=== PATIENT | male | born 1965 | race Caucasian/White ===

== ENCOUNTER 2025-05-25 11:28 | Outpatient (AMB) | payer OTHER, SELFPAY ==
--- OUTSIDE RECORDS SUMMARY | 2025-05-25 12:28 | XMS_ITS | Clinical Summary ---
Author Organization [facility] Address [address] [place] [address] Care Team Providers Care Director Of Investigations Name Role Phone Ximena Coker MD Primary Care Provider [phone] Social History Tobacco Use Types Packs/Day Years Used Date Smoking Tobacco: Never Assessed Sex and Gender Information Value Date Recorded Sex Assigned at Not on file Legal Sex Male 2:55 AM EST Gender Identity Not on file Sexual Orientation Not on file Plan of Treatment Health Maintenance Due Date Last Done Comments DTaP,Tdap,and Td Vaccines (1 - Tdap) 1982 Pneumococcal Vaccine: 50+ Ye ars (1 of 1 - PCV) 2013 Zoster Vaccines (1 of 2) 2013 Cholesterol Screening (Lipid Panel) 04/20/2024 Colorectal Cancer Screening: Colonoscopy 04/20/2024 HIV Screening 04/20/2024 Hepatitis C Screening 04/20/2024 Social Influencers of Health Screening 04/20/2024 COVID-19 Vaccine (1 - 2023-2 5 season) 2024 Depression Screening 09/29/2024 Influenza Vaccine (#1) 2025 RSV Immunization Adult Patie nts (1 - 1-dose 75+ series) 2038 HIB Vaccines Aged Out No longer eligi ble based on patient's age to complete this topic HPV Vaccines Aged Out No longer eligi ble based on patient's age to complete this topic Hepatitis A Vaccines Aged Out No long er eligible based on patient's age to complete this topic Hepatitis B Vaccines Aged Out No long er eligible based on patient's age to complete this topic IPV Vaccines Aged Out No longer eligi ble based on patient's age to complete this topic MMR Vaccines Aged Out No longer eligi ble based on patient's age to complete this topic Meningococcal ACWY Vaccine Aged Out N o longer eligible based on patient's age to complete this topic Meningococcal B Vaccine Aged Out No l onger eligible based on patient's age to complete this topic RSV Immunization Patients Un luis daniel 20 months Aged Out No longer eligible b ased on patient's age to complete this topic Varicella Vaccines Aged Out No longer eligible based on patient's age to complete this topic Care Teams Director Of Investigations Relationship Specialty Start Date End Date Ximena Coker MD PCP - General 12/26/23
--- OUTSIDE RECORDS SUMMARY | 2025-05-25 12:29 | XMS_ITS | Patient Health Record ---
Author Organization [facility] [address] Address [address] [place] [address] Care Team Providers Care Snag Grinder Name Role Phone VON HAYES Unavailable [phone] BEATRIZ COKER Unavailable [phone] ALYSSAKUNAL Unavailable [phone] Allergies No Known Allergies Results Component Value Reference Range Notes Myah Short LP Default Reviewed date:12/22/2024 08:39:44 AM Interpretation: Performing Lab:[facility], [address] [facility], Phone - [phone], Director - Esperanza Notes/Report: Myah Short LP Default A hand-written panel/profile was received from your office. In accordance with the [email or web address] Ambiguous Test Code Policy dated March 2003, we have completed your order by using the closest currently or formerly recognized AMA panel. We have assigned Lipid Panel, Test Code #[id number] to this request. If this is not the testing you wished to receive on this specimen, please contact the [email or web address] Client Inquiry/Technical Services Department to clarify the test order. We appreciate your business. PSA Total+% Free-[id number] Reviewed date:12/28/2024 09:04:23 AM Interpretation: Performing Lab:[facility], [address] [facility], [place], Phone - [phone], Director - MDBessydry Notes/Report: Prostate Specific Ag 0.8 0.0-4.0 ng/mL Alison ECLIA methodology. . According to the [place] [employer], Serum PSA should decrease and remain at undetectable levels after radical prostatectomy. The AUA defines biochemical recurrence as an initial PSA value 0.2 ng/mL or greater followed by a subsequent confirmatory PSA value 0.2 ng/mL or greater. Values obtained with different assay methods or kits cannot be used interchangeably. Results cannot be interpreted as absolute evidence of the presence or absence of malignant disease. PSA, Free 0.24 N/A ng/mL Alison ECLIA met hodology. % Free PSA 30.0 The table below lists the probability of prostate cancer for men with non-suspicious GAYLE results and total PSA between 4 and 10 ng/mL, by patient age (Vince et al, ELIU 1998, 279:1542). % Free PSA 50-64 yr 65-75 yr 0.00-10.00% 56% 55% 10.01-15.00% 24% 35% 15.01-20.00% 17% 23% 20.01-25.00% 10% 20% >25.00% 5% 9% Please note: Vince et al did not make specific recommendations regarding the use of percent free PSA for any other population of men. TSH Rfx on Abnormal to Free [id number] Reviewed date:12/22/2024 08:39:44 AM Interpretation: Performing Lab:[facility], [address] [facility], [place], Phone - [phone], Director - Esperanza Notes/Report: TSH 3.230 0.450-4.500 uIU/mL Myah Short CMP14 Default A hand-written panel/profile was received from your office. In accordance with the [email or web address] Ambiguous Test Code Policy dated March 2003, we have completed your order by using the closest currently or formerly recognized AMA panel. We have assigned Comprehensive Metabolic Panel (14), Test Code #[id number] to this request. If this is not the testing you wished to receive on this specimen, please contact the [email or web address] Client Inquiry/Technical Services Department to clarify the test order. We appreciate your business. Comp. Metabolic Panel (14)-3 Reviewed date:12/22/2024 08:42:55 AM Interpretation: Performing Lab:[facility], [address] [facility], [place], Phone - [phone], Director - Ericy Notes/Report: Glucose 102 70-99 mg/dL BUN 15 8-27 mg/dL Creatinine 0.97 0.76-1.27 mg/dL eGFR 89 >59 mL/min/1.73 BUN/Creatinine Ratio 15 10-24 Sodium 138 134-144 mmol/L Potassium 5.0 3.5-5.2 mmol/L Chloride 100 96-106 mmol/L Carbon Dioxide, Total 25 20-29 mmol/L Calcium 9.5 8.6-10.2 mg/dL Protein, Total 7.4 6.0-8.5 g/dL Albumin 4.0 3.9-4.9 g/dL Globulin, Total 3.4 1.5-4.5 g/dL Bilirubin, Total 0.9 0.0-1.2 mg/dL Alkaline Phosphatase 80 44-121 IU/L AST (SGOT) 17 0-40 IU/L ALT (SGPT) 5 0-44 IU/L Lipid Panel-[id number] Reviewed date:12/22/2024 08:39:44 AM Interpretation: Performing Lab:[facility], [address] [place] [address], Phone - [phone], Director - DCAngella Notes/Report: Cholesterol, Total 180 100-199 mg/dL Triglycerides 67 0-149 mg/dL HDL Cholesterol 83 >39 mg/dL VLDL Cholesterol Williams 13 5-40 mg/dL LDL Chol Calc (NIH) 84 0-99 mg/dL Vitamin D, 64-Ejgmoxb-[id number] Reviewed date:12/28/2024 09:04:23 AM Interpretation: Performing Lab:[facility], [address] [place] [address], Phone - [phone], Director - Esperanza Notes/Report: Vitamin D, 25-Hydroxy 47.2 30.0-100.0 ng/mL Vitamin D deficiency has been defined by the [place] of [employer] and an Endocrine Society practice guideline as a level of serum 25-OH vitamin D less than 20 ng/mL (1,2). The Endocrine Society went on to further define vitamin D insufficiency as a level between 21 and 29 ng/mL (2). 1. IOM ([place] of Medicine). 2010. Dietary reference intakes for calcium and D. [place]: The National Academies Press. 2. No MF, Yajaira [place], Robert PATEL, et al. Evaluation, treatment, and prevention of vitamin D deficiency: an Endocrine Society clinical practice guideline. JCEM. 2010; 96(7):1911-30. CBC With Differential/Platel et-[id number] Reviewed date:12/22/2024 08:39:44 AM Interpretation: Performing Lab:[facility], [address] [place] [address], Phone - [phone], Director - DCAngella Notes/Report: WBC 6.2 3.4-10.8 x10E3/uL RBC 4.70 4.14-5.80 x10E6/uL Hemoglobin 14.0 13.0-17.7 g/dL Hematocrit 41.2 37.5-51.0 % MCV 88 79-97 fL MCH 29.8 26.6-33.0 pg MCHC 34.0 31.5-35.7 g/dL RDW 12.8 11.6-15.4 % Platelets 259 150-450 x10E3/uL Neutrophils 55 Not Estab. % Lymphs 28 Not Estab. % Monocytes 10 Not Estab. % Eos 6 Not Estab. % Basos 1 Not Estab. % Neutrophils (Absolute) 3.4 1.4-7.0 x10E3/uL Lymphs (Absolute) 1.7 0.7-3.1 x10E3/uL Monocytes(Absolute) 0.6 0.1-0.9 x10E3/uL Eos (Absolute) 0.4 0.0-0.4 x10E3/uL Baso (Absolute) 0.1 0.0-0.2 x10E3/uL Immature Granulocytes 0 Not Estab. % Immature Grans (Abs) 0.0 0.0-0.1 x10E3/uL Urinalysis, Complete-[id number] Reviewed date:12/22/2024 08:39:44 AM Interpretation: [facility]forming [facility], [address] [place] [address], Phone - [phone], Director - Esperanza Notes/Report: Specific [place] 1.018 1.005-1.030 pH 5.5 5.0-7.5 Urine-Color Yellow Yellow Appearance Clear Clear WBC Esterase Negative Negative Protein Negative Negative/Trace Glucose Negative Negative Ketones Negative Negative Occult Blood Negative Negative Bilirubin Negative Negative Urobilinogen,Semi-Qn 0.2 0.2-1.0 mg/dL Nitrite, Urine Negative Negative Microscopic Examination Micr oscopic follows if indicated. Microscopic Examination See below: Micr oscopic was indicated and was performed. WBC None seen 0 - 5 /hpf RBC 0-2 0 - 2 /hpf Epithelial Cells (non renal) None seen 0 - 10 /hpf Casts None seen None seen /lpf Bacteria None seen None seen/Few Vitamin [id number] Reviewed date:12/28/2024 09:04:23 AM Interpretation: Performing Lab:[address], Phone - [phone], Director - DCAngella Notes/Report: Vitamin B12 686 458-9319 pg/mL Comp. Metabolic Panel (14)-3 Reviewed date:11/16/2024 11:40:18 AM Interpretation: Performing Lab:[address], Phone - [phone], [facility] - [facility] Notes/Report: Glucose 118 70-99 mg/dL BUN 17 8-27 mg/dL Creatinine 0.97 0.76-1.27 mg/dL eGFR 89 >59 mL/min/1.73 BUN/Creatinine Ratio 18 10-24 Sodium 140 134-144 mmol/L Potassium 5.0 3.5-5.2 mmol/L Chloride 102 96-106 mmol/L Carbon Dioxide, Total 23 20-29 mmol/L Calcium 9.5 8.6-10.2 mg/dL Protein, Total 7.3 6.0-8.5 g/dL Albumin 4.4 3.9-4.9 g/dL Globulin, Total 2.9 1.5-4.5 g/dL Bilirubin, Total 0.5 0.0-1.2 mg/dL Alkaline Phosphatase 81 44-121 IU/L AST (SGOT) 16 0-40 IU/L ALT (SGPT) 5 0-44 IU/L Triiodothyronine (T3), Free- [id number] Reviewed date:11/05/2024 08:16:15 AM Interpretation: Performing Lab:[facility], Phone - [phone], Director - Ericy Notes/Report: Triiodothyronine (T3), Free 2.9 2.0-4.4 pg/mL CBC With Differential/Platel et-[id number] Reviewed date:11/05/2024 08:16:15 AM Interpretation: Performing Lab:[address], Phone - [phone], Director - Joaquimdry Notes/Report: WBC 6.3 3.4-10.8 x10E3/uL RBC 4.81 4.14-5.80 x10E6/uL Hemoglobin 14.0 13.0-17.7 g/dL Hematocrit 42.9 37.5-51.0 % MCV 89 79-97 fL MCH 29.1 26.6-33.0 pg MCHC 32.6 31.5-35.7 g/dL RDW 12.9 11.6-15.4 % Platelets 259 150-450 x10E3/uL Neutrophils 56 Not Estab. % Lymphs 31 Not Estab. % Monocytes 10 Not Estab. % Eos 2 Not Estab. % Basos 1 Not Estab. % Neutrophils (Absolute) 3.5 1.4-7.0 x10E3/uL Lymphs (Absolute) 2.0 0.7-3.1 x10E3/uL Monocytes(Absolute) 0.7 0.1-0.9 x10E3/uL Eos (Absolute) 0.1 0.0-0.4 x10E3/uL Baso (Absolute) 0.1 0.0-0.2 x10E3/uL Immature Granulocytes 0 Not Estab. % Immature Grans (Abs) 0.0 0.0-0.1 x10E3/uL TSH-[id number] Reviewed date:11/05/2024 08:16:15 AM Interpretation: Performing Lab:[facility], [address] [place] [address], Phone - [phone], [facility] - [facility] Notes/Report: TSH 2.180 0.450-4.500 uIU/mL Thyroxine (T4) Free, Direct- [id number] Reviewed date:11/05/2024 08:16:15 AM Interpretation: Performing Lab:[facility], [address] [facility], Phone - [phone], Director - [facility] Notes/Report: T4,Free(Direct) 1.27 0.82-1.77 ng/dL EKG Reviewed date:11/02/2024 03:07:23 PM Interpretation: Performing Lab: Notes/Report: ECGDiastolicBP 92 ECGDiastolicBP 92 ECGHr 48 ECGHr 52 ECGPRInterval 150 ECGPRInterval 146 ECGPWaveAxis 48 ECGPWaveAxis 44 ECGQRSDuration 94 ECGQRSDuration 94 ECGQrsWaveAxis -20 ECGQrsWaveAxis -19 ECGQTcInterval 423 ECGQTcInterval 420 ECGQTInterval 444 ECGQTInterval 434 ECGSystolicBP 172 ECGSystolicBP 172 ECGTWaveAxis 17 ECGTWaveAxis 21 RR_DiastolicBP 0 RR_DiastolicBP 0 RR_MaxRRInterval 0 RR_MaxRRInterval 0 RR_MeanHR 0 RR_MeanHR 0 RR_MeanRRInterval 0 RR_MeanRRInterval 0 RR_MinRRInterval 0 RR_MinRRInterval 0 RR_NumBeats 0 RR_NumBeats 0 RR_NumNormalBeats 0 RR_NumNormalBeats 0 RR_SystolicBP 0 RR_SystolicBP 0 EKG Reviewed date:11/02/2024 03:07:23 PM Interpretation: Performing Lab: Notes/Report: ECGDiastolicBP 92 ECGDiastolicBP 92 ECGHr 48 ECGHr 52 ECGPRInterval 150 ECGPRInterval 146 ECGPWaveAxis 48 ECGPWaveAxis 44 ECGQRSDuration 94 ECGQRSDuration 94 ECGQrsWaveAxis -20 ECGQrsWaveAxis -19 ECGQTcInterval 423 ECGQTcInterval 420 ECGQTInterval 444 ECGQTInterval 434 ECGSystolicBP 172 ECGSystolicBP 172 ECGTWaveAxis 17 ECGTWaveAxis 21 RR_DiastolicBP 0 RR_DiastolicBP 0 RR_MaxRRInterval 0 RR_MaxRRInterval 0 RR_MeanHR 0 RR_MeanHR 0 RR_MeanRRInterval 0 RR_MeanRRInterval 0 RR_MinRRInterval 0 RR_MinRRInterval 0 RR_NumBeats 0 RR_NumBeats 0 RR_NumNormalBeats 0 RR_NumNormalBeats 0 RR_SystolicBP 0 RR_SystolicBP 0 Reason For Referral Reason Evaluate & Treat Diagnosis 1 Hemorrhoids, externa l (K64.4) Referral Organization [facility] Referring Provider First Name VON Referring Provider Last Name FREDDY Referring Provider Speciality Internal M edicine Referred Provider Specialty General Surg sloane General Notes Tasha Livingston 2024 08:25:22 AM > santeestate form filled and faxed , Phone, , Fax, Clinical Notes Lina Adorno 06/2025 02:14:15 PM > Patient was scheduled for 04/06 but canceled during the appointment confirmation call, stating that the appointment was no longer needed Referral Priority Routine Medications Medication SIG (Take, Route, Frequency, Duration) Notes Start Date End Date Status Irbesartan 300 MG TAKE 1 TABLET BY ROSENDO TH EVERY DAY FOR 90 DAYS; Duration: 90 Active amLODIPine Besylate 10 MG TAKE 1 TABLET BY MOUTH EVERY DAY; Duration: 90 Active Vitamin D 50 MCG (1999 UT) 1 capsule Ora lly Once a day Unknown Levothyroxine Sodium 88 MCG TAKE 1 TABLE T BY MOUTH EVERY DAY IN THE MORNING ON EMPTY STOMACH FOR 90 DAYS; Duration: 90 Active Hydrocortisone Acetate 1 % 1 application Externally Twice a day; Duration: 30 days 01/26/2025 Unknown Sildenafil Citrate 100 MG 1 tablet as ne eded Orally Once a day; Duration: 7 days 10/31/2023 Active Omeprazole 20 MG 1 capsule 1/2 to 1 h our before morning meal Orally Once a day; Duration: 30 days 03/15/2025 Active Atorvastatin Calcium 20 MG 1 tablet Oral ly Once a day; Duration: 90 days Active Metoprolol Succinate ER 25 MG TAKE 1 TABLET BY MOUTH EVERY DAY FOR 30 DAYS; Duration: 90 Unknown Immunizations Vaccine Route Administration Date Status Comme nts influenza IM Intramuscular 06/28/2022 Administered influenza IM Intramuscular 06/23/2023 Administered Social History Tobacco Use: Social History Observation Description Date Details (start date - stop date) Never Smoker NA - NA Tobacco Use/Smoking Question Answer Notes Are you a nonsmoker Section Notes: Tob: Never ETOH: Social Drug: Marijuana Exterior Interior Specialist/Child Care Tob: Never ETOH: Social Drug: Marijuana Exterior Interior Specialist/Child Care Tob: Never ETOH: Social Drug: Marijuana Exterior Interior Specialist/Child Care Tob: Never ETOH: Social Drug: Marijuana Exterior Interior Specialist/Child Care Problems Problem Type SNOMED Code ICD Code Onset Dates Problem Status W/U Status Risk Notes Problem Goiter (2772349) Iodine-deficien cy related (endemic) goiter, unspecified (E01.2) Active confirmed Problem Hyperlipidemia (14500682) Hyperlipidemia, unspecified (E78.5) Active confirmed Problem Essential hypertension (77037731) Essential (primary) hypertension (I10) Active confirmed Problem Endocrine/metabolic screening (819701338) Encounter for screening for other suspected endocrine disorder (Z13.29) Active confirmed Problem Acquired hypothyroidism (311272362) Acquired hypothyroidism (E03.9) Active confirmed Problem Anxiety (67173218) Anxiety (F41.9) Active confi rmed Problem Hyperlipoproteinemia (5606929) Acquired hyperlipoproteinemia (E78.5) Active confirmed Problem Adult health examination (451956440) Adult general medical exam (Z00.00) Active confirmed Problem Hypothyroidism (95628718) Hypothyroidism, unspecified type (E03.9) Active confirmed Problem External hemorrhoid (86743921) External hemorrhoid (K64.4) Active confirmed Problem Vitamin D deficiency (35222218) Vitamin D deficiency (E55.9) Active confirmed Problem Accelerated essentia l hypertension (74723569) Accelerated essential hypertension (I10) Active confirmed Problem Hypertension (54109060) Uncontrolled hypertension (I10) Active confirmed Problem Essential hypertension (80227643) Hypertension, unspecified type (I10) Active confirmed Problem Pure hypercholesterolemia (483022277) Elevated cholesterol (E78.00) Active confirmed Problem Vitamin B>12< deficiency anaemia (18532084) Anemia due to vitamin B12 deficiency, unspecified B12 deficiency type (D51.9) Active confirmed Problem Gastroesophageal reflux disease (513782298) GERD without esophagitis (K21.9) Active confirmed Problem Hemorrhoids (disorder) (06491381) Hemorrhoids, external (K64.4) Active confirmed Problem Multinodular goiter (265173776) Multinodular goiter (E04.2) Active confirmed Problem Screening for malignant neoplasm of prostate (484465196) Encounter for prostate cancer screening (Z12.5) Active confirmed Problem Lipid screening (774473592) Lipid screening (Z13.220) Active confirmed Problem History of malignant melanoma of the skin (437890607353) History of melanoma (Z85.820) Active confirmed Problem Hyperlipidemia (70435380) Hyperlipidemia (E78.5) Active confirmed Problem Goiter (7967605) Goiter (E04.9) Active confirme d Vital Signs Heart Rate 55 /min 01/26/2025 Oximetry 97 % 01/26/2025 Blood pressure diastolic 88 mm Hg 01/26/2025 Height 71 in 01/26/2025 Blood pressure systolic 138 mm Hg 01/26/2025 Weight 196.8 lbs 01/26/2025 BMI 27.45 kg/m2 01/26/2025 Encounters Encounter Location Date Provider Diagnosis [facility] [address] [place], [place] 11/02/2024 KUNAL SHAH Screening for heart disease Z13.6 ; Uncontrolled hypertension I10 and Goiter E04.[address] [facility] [address] [place], [place] 11/09/2024 KUNAL ALYSSA Screening for heart disease Z13.6 ; Uncontrolled hypertension I10 and Goiter E04.[address] [facility] [address] [place], [place] 12/27/2024 VON FREDDY Well adult exam Z00. 00 ; Essential (primary) hypertension I10 ; History of melanoma Z85.820 ; Goiter E04.9 ; Anxiety F41.9 ; Elevated cholesterol E78.00 and Multinodular goiter E04.[address] [facility] [address] [place], [place] 01/26/2025 VON FREDDY External hemorrhoid K64.4 ; Essential (primary) hypertension I10 and Internal hemorrhoid K64.[address] [facility] [address] [place], [place] 08/12/[address] [facility] [address] [place], [place] 11/02/2024 TALAL COKER Essential (primary) hypertension I10 and Hypothyroidism, unspecified type E03.9 [facility] [address] [place] [address] 12/27/2024 VON FREDDY [facility] [address] [place] [address] 06/01/2024 TALAL COKER [facility] [address] [place] [address] 11/01/2024 TALAL COKER [facility] [address] [place] [address] 01/12/2025 VON FREDDY [facility] [address] [place] [address] 02/01/2025 VON FREDDY [facility] [address] [place] [address] 03/15/2025 VON FREDDY [facility] [address] [facility] [address] [place] [address] 03/15/2025 VON FREDDY [facility] [address] [facility] [address] [place] [address] 04/14/2025 VON FREDDY [facility] [address] [address] 04/15/2025 VON FREDDY [facility] [address] [address] 05/18/2025 VON FREDDY Assessments Encounter Date Diagnosis (ICD Code) Assessment Notes Treatment Notes Treatment Clinical Notes Section Notes 11/02/2024 Uncontrolled hypertension (ICD-10 - I10) # Uncontrolled HTN: Blood pressures reportedly have been running significantly high, both in doctors offices and at home. Patient does report that he has been under more stress at work. He does perform more jittery. Patient also did have a subtotal thyroidectomy secondary to a goiter about a year and a half ago. He is last TSH T3-T4 was checked in March, and was within normal limits. Patient is compliant with taking his thyroid medication. Back in November 2023, medication changes did occur, secondary to elevated blood pressure. Patient reports he has been stable since. He does have baseline bradycardia however I am hesitant to increase the metoprolol secondary to this. Patient denies any fatigue or exertional dyspnea. Patient reports that he was on amlodipine in the past, and felt that it worked well. Patient is interested in potentially getting back on this for more adequate blood pressure control. I will check patient's baseline labs including a CBC and CMP to ensure that there is no renal dysfunction, or polycythemia that could be raising the blood pressure. Patient will also have his thyroid levels checked to ensure that he is not being exogenously given more thyroid hormone. Patient verbalizes understanding. He will check his blood pressures at least once a day over the next week, and bring us the readings. EKG was done in office with normal sinus rhythm with no ischemic changes noted. Patient verbalizes understanding #History of goiter. Status post thyroidectomy. See above. Case discussed with collaborating physician Evangelista Coker who reviewed the assessment and plan. Chart, medications, labs, vital signs reviewed. Dictation was accomplished with the use of Dragon voice recognition software, prone to medical misidentifications and grammatical errors. This is unintentional and the practitioner does try to identify and correct these, but some could still be present. Please do not hesitate to contact practitioner for clarification. All questions answered to patients satisfaction. Patient verbalized understanding of diagnosis and treatments explained. To call sooner prior to next visit it any questions/concerns arise. 11/02/2024 Screening for heart disease (ICD-10 - Z13.6) # Uncontrolled HTN: Blood pressures reportedly have been running significantly high, both in doctors offices and at home. Patient does report that he has been under more stress at work. He does perform more jittery. Patient also did have a subtotal thyroidectomy secondary to a goiter about a year and a half ago. He is last TSH T3-T4 was checked in March, and was within normal limits. Patient is compliant with taking his thyroid medication. Back in November 2023, medication changes did occur, secondary to elevated blood pressure. Patient reports he has been stable since. He does have baseline bradycardia however I am hesitant to increase the metoprolol secondary to this. Patient denies any fatigue or exertional dyspnea. Patient reports that he was on amlodipine in the past, and felt that it worked well. Patient is interested in potentially getting back on this for more adequate blood pressure control. I will check patient's baseline labs including a CBC and CMP to ensure that there is no renal dysfunction, or polycythemia that could be raising the blood pressure. Patient will also have his thyroid levels checked to ensure that he is not being exogenously given more thyroid hormone. Patient verbalizes understanding. He will check his blood pressures at least once a day over the next week, and bring us the readings. EKG was done in office with normal sinus rhythm with no ischemic changes noted. Patient verbalizes understanding #History of goiter. Status post thyroidectomy. See above. Case discussed with collaborating physician Evangelista Coker who reviewed the assessment and plan. Chart, medications, labs, vital signs reviewed. Dictation was accomplished with the use of [employer] voice recognition software, prone to medical misidentifications and grammatical errors. This is unintentional and the practitioner does try to identify and correct these, but some could still be present. Please do not hesitate to contact practitioner for clarification. All questions answered to patients satisfaction. Patient verbalized understanding of diagnosis and treatments explained. To call sooner prior to next visit it any questions/concerns arise. 11/02/2024 Essential (primary) hypertension (ICD-10 - I10) 11/09/2024 Uncontrolled hypertension (ICD-10 - I10) # HTN: Improved. Overall mean BP noted to be in 140/80 range. We added Amlodipine last visit wiht improvement. Pt was initially on Irebsartan, HCTZ and Amlodipine in November 2023, but this was changed and BB was added. Pt did not like the HCTZ due to urinary frequency. We discussed for now keeping BB, but pulse does occasionally dip into low 50's. Pt encouraged to continue to check his BP 3-4 x a week and re-evaluate at his CPE. #History of goiter. Status post thyroidectomy. See above. Case discussed with collaborating physician Evangelista Coker who reviewed the assessment and plan. Chart, medications, labs, vital signs reviewed. Dictation was accomplished with the use of [employer] voice recognition software, prone to medical misidentifications and grammatical errors. This is unintentional and the practitioner does try to identify and correct these, but some could still be present. Please do not hesitate to contact practitioner for clarification. All questions answered to patients satisfaction. Patient verbalized understanding of diagnosis and treatments explained. To call sooner prior to next visit it any questions/concerns arise. 11/09/2024 Screening for heart disease (ICD-10 - Z13.6) # HTN: Improved. Overall mean BP noted to be in 140/80 range. We added Amlodipine last visit wiht improvement. Pt was initially on Irebsartan, HCTZ and Amlodipine in November 2023, but this was changed and BB was added. Pt did not like the HCTZ due to urinary frequency. We discussed for now keeping BB, but pulse does occasionally dip into low 50's. Pt encouraged to continue to check his BP 3-4 x a week and re-evaluate at his CPE. #History of goiter. Status post thyroidectomy. See above. Case discussed with collaborating physician Evangelista Coker who reviewed the assessment and plan. Chart, medications, labs, vital signs reviewed. Dictation was accomplished with the use of [employer] voice recognition software, prone to medical misidentifications and grammatical errors. This is unintentional and the practitioner does try to identify and correct these, but some could still be present. Please do not hesitate to contact practitioner for clarification. All questions answered to patients satisfaction. Patient verbalized understanding of diagnosis and treatments explained. To call sooner prior to next visit it any questions/concerns arise. 12/27/2024 Essential (primary) hypertension (ICD-10 - I10) Erick is a pleasant 59-year-old male with a past medical history of essential hypertension, GERD, goiter, history of melanoma and hyperlipidemia who presents to the office today for full physical exam. Medical history, medications, allergies, surgical history, hospitalizations and family history reviewed patient in office today. # HTN: Improved. Overall mean BP noted to be in 120/80 range. Amlodipine last visit with Dr. Coker was added and his overall improved his BP. We discussed for now keeping BB and amlodipine dose, but pulse does occasionally dip into low 50's. He experiences occasional palpitations at times and had EKG done in the office in October. EKG showed irregular irregular rhythm. Will continue metoprolol for rate control and montior symptoms. Plan is to order a new blood pressure monitor as his old monitor seems to be giving higher readings than in office. Pt encouraged to continue to check his BP 3-4 x a week and re-evaluate at his 6 month follow up. 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 Plan is to discharge to PCP for further management of hypothyroidism. Need yearly or as needed TFT check for monitoring. Thyroid labs checked 12/21 and showed normal TSH and T3/T4 range. #Vitamin D deficiency: Will check Vitamin D and B12 levels to determine if there is an overlying cause to the patient's brain fog and fatigue symptoms. Follow up in 6 months. #Prostate Screening: PSA levels were ordered for annual screening protocol. Will go over results at 6 month follow up visit. #Vaccines: Denies. Physical Men Patient seen and examined. Comprehensive discussion was done on the following. 1. Nutrition: It is important to follow a healthy diet based on lots of vegetables and legumes and good fat. Avoid processed food and processed carbohydrates. Learn to prepare your own meals. Learn to read labels and avoid high fructose corn syrup, processed chemicals added to increase shelf life and preprepared meals. Avoid fast foods. Learn to eat slowly and plan meals for a week. Try to count calories and be mindful off daily calorie intake. Get into the habit of keeping an eye on your weight by using an appropriate scale. Learn to log exercise and discussed fitness Apps like Melty which can help keep log off calories taken versus calories burned. Local food should be preferred. Discussed Dirty Dozen Versus Clean Fifteen. Discussed healthy supplements like fish oil, Tumeric, Curcumin, Melatonin, Resveratrol, Probiotics, Vitamin-D, Alpha-Lipoic acid, Vitamin-D and coconut oil. 2. It is important to exercise regularly. Is a good habit to walk at least 30-45 minutes a day. Gentle weightlifting with standard precautions to protect the back. Finding activity like cycling or hiking and get into the habit of engaging in it. Stretching before and after the exercises important. It is also important to contact me if there are any problems like shortness of breath, chest pain, back pain and joint or muscle pain associated with the exercise. 3. Discussed age appropriate screening guidelines. Colonoscopy needs to start at age 50 with stool for occult blood as appropriate. There is a new test that can test for genetic abnormalities in the stool sample. This would not replace a colonoscopy but could be used as a screening tool for patients who do not want a colonoscopy. We discussed the importance of early detection of colon cancer. 4. Discussed current PSA screening. PSA screening can be done in most patients between age 50 and 65. However early detection of prostate cancer needs to carefully be balanced with complications with treatment. These include incontinence, impotence etc. Each patient should decide if they would like to have this test. 5. Discussed safe driving and no use of smart phone while driving 6. Age-appropriate immunizations were discussed. A tetanus booster is needed every 10 years. Flu vaccine is recommended every year just before the start of the flu season. Shingles vaccine is recommended after age 50 but not all insurances cover it. Pneumonia vaccine is given after age 65 unless there are certain comorbidities for which it is started earlier. 7. Diagnostic labs were discussed. These could include CBC CMP and lipids with fasting blood glucose and insulin levels. Vitamin D and hemoglobin A1c testing might be appropriate. All questions have been answered to patient's satisfaction. Patient verbalized understanding of diagnosis and treatments explained. Advised to call sooner prior to next visit it any questions/concerns arise. Case discussed with Regina GRESHAM who reviewed the assessment and plan. Chart, medications, labs, vital signs reviewed. Dictation was accomplished with the use of [employer] voice recognition software, which is prone to medical misidentifications and grammatical errors. This are unintentional and the practitioner does try to identify and correct these, but some could still be present. Please do not hesitate to contact practitioner for clarification. 12/27/2024 Well adult exam (ICD-10 - Z00.00) Erick is a pleasant 59-year-old male with a past medical history of essential hypertension, GERD, goiter, history of melanoma and hyperlipidemia who presents to the office today for full physical exam. Medical history, medications, allergies, surgical history, hospitalizations and family history reviewed patient in office today. # HTN: Improved. Overall mean BP noted to be in 120/80 range. Amlodipine last visit with Dr. Coker was added and his overall improved his BP. We discussed for now keeping BB and amlodipine dose, but pulse does occasionally dip into low 50's. He experiences occasional palpitations at times and had EKG done in the office in October. EKG showed irregular irregular rhythm. Will continue metoprolol for rate control and montior symptoms. Plan is to order a new blood pressure monitor as his old monitor seems to be giving higher readings than in office. Pt encouraged to continue to check his BP 3-4 x a week and re-evaluate at his 6 month follow up. 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 Plan is to discharge to PCP for further management of hypothyroidism. Need yearly or as needed TFT check for monitoring. Thyroid labs checked 12/21 and showed normal TSH and T3/T4 range. #Vitamin D deficiency: Will check Vitamin D and B12 levels to determine if there is an overlying cause to the patient's brain fog and fatigue symptoms. Follow up in 6 months. #Prostate Screening: PSA levels were ordered for annual screening protocol. Will go over results at 6 month follow up visit. #Vaccines: Denies. Physical Men Patient seen and examined. Comprehensive discussion was done on the following. 1. Nutrition: It is important to follow a healthy diet based on lots of vegetables and legumes and good fat. Avoid processed food and processed carbohydrates. Learn to prepare your own meals. Learn to read labels and avoid high fructose corn syrup, processed chemicals added to increase shelf life and preprepared meals. Avoid fast foods. Learn to eat slowly and plan meals for a week. Try to count calories and be mindful off daily calorie intake. Get into the habit of keeping an eye on your weight by using an appropriate scale. Learn to log exercise and discussed fitness Apps like Melty which can help keep log off calories taken versus calories burned. Local food should be preferred. Discussed Dirty Dozen Versus Clean Fifteen. Discussed healthy supplements like fish oil, Tumeric, Curcumin, Melatonin, Resveratrol, Probiotics, Vitamin-D, Alpha-Lipoic acid, Vitamin-D and coconut oil. 2. It is important to exercise regularly. Is a good habit to walk at least 30-45 minutes a day. Gentle weightlifting with standard precautions to protect the back. Finding activity like cycling or hiking and get into the habit of engaging in it. Stretching before and after the exercises important. It is also important to contact me if there are any problems like shortness of breath, chest pain, back pain and joint or muscle pain associated with the exercise. 3. Discussed age appropriate screening guidelines. Colonoscopy needs to start at age 50 with stool for occult blood as appropriate. There is a new test that can test for genetic abnormalities in the stool sample. This would not replace a colonoscopy but could be used as a screening tool for patients who do not want a colonoscopy. We discussed the importance of early detection of colon cancer. 4. Discussed current PSA screening. PSA screening can be done in most patients between age 50 and 65. However early detection of prostate cancer needs to carefully be balanced with complications with treatment. These include incontinence, impotence etc. Each patient should decide if they would like to have this test. 5. Discussed safe driving and no use of smart phone while driving 6. Age-appropriate immunizations were discussed. A tetanus booster is needed every 10 years. Flu vaccine is recommended every year just before the start of the flu season. Shingles vaccine is recommended after age 50 but not all insurances cover it. Pneumonia vaccine is given after age 65 unless there are certain comorbidities for which it is started earlier. 7. Diagnostic labs were discussed. These could include CBC CMP and lipids with fasting blood glucose and insulin levels. Vitamin D and hemoglobin A1c testing might be appropriate. All questions have been answered to patient's satisfaction. Patient verbalized understanding of diagnosis and treatments explained. Advised to call sooner prior to next visit it any questions/concerns arise. Case discussed with Regina GRESHAM who reviewed the assessment and plan. Chart, medications, labs, vital signs reviewed. Dictation was accomplished with the use of [employer] voice recognition software, which is prone to medical misidentifications and grammatical errors. This are unintentional and the practitioner does try to identify and correct these, but some could still be present. Please do not hesitate to contact practitioner for clarification. 01/26/2025 Essential (primary) hypertension (ICD-10 - I10) Erick is a pleasant 60-year-old male who presents to the office today for an urgent visit. #Bilateral ankle swelling: Overall resolved patient's blood pressures are controlled today at 138/88, heart rate of 55. Continue irbesartan 300 mg tablets, metoprolol 25 mg tablets amlodipine 10 mg tablets. Patient is to call the office if he ever feels chest discomfort, shortness of breath, syncopal episodes or uncomfortable overall. However I feel as though the patient's blood pressure is appropriately managed at this time. Explained to patient that his resting heart rate is lower due to being on a beta-jimmie.. Consider cardiology referral or echocardiogram if patient continues to have any swelling or symptoms. #External hemorrhoids: General surgery referral be placed for external hemorrhoids, discussed the potential of having a rubber band ligation as the patient sectional hemorrhoid appears engorged, however denies any pain upon rectal exam today. business support assistant present in office today for rectal exam. Guaiac testing is negative. Patient does have both external and internal hemorrhoids. Hydrocortisone cream will be prescribed to place on the external hemorrhoids for pruritic relief. All questions have been answered to patient's satisfaction. Patient verbalized understanding of diagnosis and treatments explained. Advised to call sooner prior to next visit it any questions/concerns arise. Case discussed with Regina GRESHAM who reviewed the assessment and plan. Chart, medications, labs, vital signs reviewed. Dictation was accomplished with the use of [employer] voice recognition software, which is prone to medical misidentifications and grammatical errors. This are unintentional and the practitioner does try to identify and correct these, but some could still be present. Please do not hesitate to contact practitioner for clarification. 01/26/2025 External hemorrhoid (ICD-10 - K64.4) Erick is a pleasant 60-year-old male who presents to the office today for an urgent visit. #Bilateral ankle swelling: Overall resolved patient's blood pressures are controlled today at 138/88, heart rate of 55. Continue irbesartan 300 mg tablets, metoprolol 25 mg tablets amlodipine 10 mg tablets. Patient is to call the office if he ever feels chest discomfort, shortness of breath, syncopal episodes or uncomfortable overall. However I feel as though the patient's blood pressure is appropriately managed at this time. Explained to patient that his resting heart rate is lower due to being on a beta-jimmie.. Consider cardiology referral or echocardiogram if patient continues to have any swelling or symptoms. #External hemorrhoids: General surgery referral be placed for external hemorrhoids, discussed the potential of having a rubber band ligation as the patient sectional hemorrhoid appears engorged, however denies any pain upon rectal exam today. business support assistant present in office today for rectal exam. Guaiac testing is negative. Patient does have both external and internal hemorrhoids. Hydrocortisone cream will be prescribed to place on the external hemorrhoids for pruritic relief. All questions have been answered to patient's satisfaction. Patient verbalized understanding of diagnosis and treatments explained. Advised to call sooner prior to next visit it any questions/concerns arise. Case discussed with Regina GRESHAM who reviewed the assessment and plan. Chart, medications, labs, vital signs reviewed. Dictation was accomplished with the use of [employer] voice recognition software, which is prone to medical misidentifications and grammatical errors. This are unintentional and the practitioner does try to identify and correct these, but some could still be present. Please do not hesitate to contact practitioner for clarification. 01/26/2025 Internal hemorrhoid (ICD-10 - K64.8) Erick is a pleasant 60-year-old male who presents to the office today for an urgent visit. #Bilateral ankle swelling: Overall resolved patient's blood pressures are controlled today at 138/88, heart rate of 55. Continue irbesartan 300 mg tablets, metoprolol 25 mg tablets amlodipine 10 mg tablets. Patient is to call the office if he ever feels chest discomfort, shortness of breath, syncopal episodes or uncomfortable overall. However I feel as though the patient's blood pressure is appropriately managed at this time. Explained to patient that his resting heart rate is lower due to being on a beta-jimmie.. Consider cardiology referral or echocardiogram if patient continues to have any swelling or symptoms. #External hemorrhoids: General surgery referral be placed for external hemorrhoids, discussed the potential of having a rubber band ligation as the patient sectional hemorrhoid appears engorged, however denies any pain upon rectal exam today. business support assistant present in office today for rectal exam. Guaiac testing is negative. Patient does have both external and internal hemorrhoids. Hydrocortisone cream will be prescribed to place on the external hemorrhoids for pruritic relief. All questions have been answered to patient's satisfaction. Patient verbalized understanding of diagnosis and treatments explained. Advised to call sooner prior to next visit it any questions/concerns arise. Case discussed with Regina GRESHAM who reviewed the assessment and plan. Chart, medications, labs, vital signs reviewed. Dictation was accomplished with the use of [employer] voice recognition software, which is prone to medical misidentifications and grammatical errors. This are unintentional and the practitioner does try to identify and correct these, but some could still be present. Please do not hesitate to contact practitioner for clarification. 12/27/2024 History of melanoma (ICD-10 - Z85.820) Erick is a pleasant 59-year-old male with a past medical history of essential hypertension, GERD, goiter, history of melanoma and hyperlipidemia who presents to the office today for full physical exam. Medical history, medications, allergies, surgical history, hospitalizations and family history reviewed patient in office today. # HTN: Improved. Overall mean BP noted to be in 120/80 range. Amlodipine last visit with Dr. Coker was added and his overall improved his BP. We discussed for now keeping BB and amlodipine dose, but pulse does occasionally dip into low 50's. He experiences occasional palpitations at times and had EKG done in the office in October. EKG showed irregular irregular rhythm. Will continue metoprolol for rate control and montior symptoms. Plan is to order a new blood pressure monitor as his old monitor seems to be giving higher readings than in office. Pt encouraged to continue to check his BP 3-4 x a week and re-evaluate at his 6 month follow up. 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 Plan is to discharge to PCP for further management of hypothyroidism. Need yearly or as needed TFT check for monitoring. Thyroid labs checked 12/21 and showed normal TSH and T3/T4 range. #Vitamin D deficiency: Will check Vitamin D and B12 levels to determine if there is an overlying cause to the patient's brain fog and fatigue symptoms. Follow up in 6 months. #Prostate Screening: PSA levels were ordered for annual screening protocol. Will go over results at 6 month follow up visit. #Vaccines: Denies. Physical Men Patient seen and examined. Comprehensive discussion was done on the following. 1. Nutrition: It is important to follow a healthy diet based on lots of vegetables and legumes and good fat. Avoid processed food and processed carbohydrates. Learn to prepare your own meals. Learn to read labels and avoid high fructose corn syrup, processed chemicals added to increase shelf life and preprepared meals. Avoid fast foods. Learn to eat slowly and plan meals for a week. Try to count calories and be mindful off daily calorie intake. Get into the habit of keeping an eye on your weight by using an appropriate scale. Learn to log exercise and discussed fitness Apps like Melty which can help keep log off calories taken versus calories burned. Local food should be preferred. Discussed Dirty Dozen Versus Clean Fifteen. Discussed healthy supplements like fish oil, Tumeric, Curcumin, Melatonin, Resveratrol, Probiotics, Vitamin-D, Alpha-Lipoic acid, Vitamin-D and coconut oil. 2. It is important to exercise regularly. Is a good habit to walk at least 30-45 minutes a day. Gentle weightlifting with standard precautions to protect the back. Finding activity like cycling or hiking and get into the habit of engaging in it. Stretching before and after the exercises important. It is also important to contact me if there are any problems like shortness of breath, chest pain, back pain and joint or muscle pain associated with the exercise. 3. Discussed age appropriate screening guidelines. Colonoscopy needs to start at age 50 with stool for occult blood as appropriate. There is a new test that can test for genetic abnormalities in the stool sample. This would not replace a colonoscopy but could be used as a screening tool for patients who do not want a colonoscopy. We discussed the importance of early detection of colon cancer. 4. Discussed current PSA screening. PSA screening can be done in most patients between age 50 and 65. However early detection of prostate cancer needs to carefully be balanced with complications with treatment. These include incontinence, impotence etc. Each patient should decide if they would like to have this test. 5. Discussed safe driving and no use of smart phone while driving 6. Age-appropriate immunizations were discussed. A tetanus booster is needed every 10 years. Flu vaccine is recommended every year just before the start of the flu season. Shingles vaccine is recommended after age 50 but not all insurances cover it. Pneumonia vaccine is given after age 65 unless there are certain comorbidities for which it is started earlier. 7. Diagnostic labs were discussed. These could include CBC CMP and lipids with fasting blood glucose and insulin levels. Vitamin D and hemoglobin A1c testing might be appropriate. All questions have been answered to patient's satisfaction. Patient verbalized understanding of diagnosis and treatments explained. Advised to call sooner prior to next visit it any questions/concerns arise. Case discussed with Regina GRESHAM who reviewed the assessment and plan. Chart, medications, labs, vital signs reviewed. Dictation was accomplished with the use of [employer] voice recognition software, which is prone to medical misidentifications and grammatical errors. This are unintentional and the practitioner does try to identify and correct these, but some could still be present. Please do not hesitate to contact practitioner for clarification. 11/09/2024 Goiter (ICD-10 - E04.9) # HTN: Improved. Overall mean BP noted to be in 140/80 range. We added Amlodipine last visit wiht improvement. Pt was initially on Irebsartan, HCTZ and Amlodipine in November 2023, but this was changed and BB was added. Pt did not like the HCTZ due to urinary frequency. We discussed for now keeping BB, but pulse does occasionally dip into low 50's. Pt encouraged to continue to check his BP 3-4 x a week and re-evaluate at his CPE. #History of goiter. Status post thyroidectomy. See above. Case discussed with collaborating physician Evangelista Coker who reviewed the assessment and plan. Chart, medications, labs, vital signs reviewed. Dictation was accomplished with the use of [employer] voice recognition software, prone to medical misidentifications and grammatical errors. This is unintentional and the practitioner does try to identify and correct these, but some could still be present. Please do not hesitate to contact practitioner for clarification. All questions answered to patients satisfaction. Patient verbalized understanding of diagnosis and treatments explained. To call sooner prior to next visit it any questions/concerns arise. 11/02/2024 Hypothyroidism, unspecified type (ICD-10 - E03.9) 11/02/2024 Goiter (ICD-10 - E04.9) # Uncontrolled HTN: Blood pressures reportedly have been running significantly high, both in doctors offices and at home. Patient does report that he has been under more stress at work. He does perform more jittery. Patient also did have a subtotal thyroidectomy secondary to a goiter about a year and a half ago. He is last TSH T3-T4 was checked in March, and was within normal limits. Patient is compliant with taking his thyroid medication. Back in November 2023, medication changes did occur, secondary to elevated blood pressure. Patient reports he has been stable since. He does have baseline bradycardia however I am hesitant to increase the metoprolol secondary to this. Patient denies any fatigue or exertional dyspnea. Patient reports that he was on amlodipine in the past, and felt that it worked well. Patient is interested in potentially getting back on this for more adequate blood pressure control. I will check patient's baseline labs including a CBC and CMP to ensure that there is no renal dysfunction, or polycythemia that could be raising the blood pressure. Patient will also have his thyroid levels checked to ensure that he is not being exogenously given more thyroid hormone. Patient verbalizes understanding. He will check his blood pressures at least once a day over the next week, and bring us the readings. EKG was done in office with normal sinus rhythm with no ischemic changes noted. Patient verbalizes understanding #History of goiter. Status post thyroidectomy. See above. Case discussed with collaborating physician Evangelista Coker who reviewed the assessment and plan. Chart, medications, labs, vital signs reviewed. Dictation was accomplished with the use of TheFormTool voice recognition software, prone to medical misidentifications and grammatical errors. This is unintentional and the practitioner does try to identify and correct these, but some could still be present. Please do not hesitate to contact practitioner for clarification. All questions answered to patients satisfaction. Patient verbalized understanding of diagnosis and treatments explained. To call sooner prior to next visit it any questions/concerns arise. 12/27/2024 Goiter (ICD-10 - E04.9) Erick is a pleasant 59-year-old male with a past medical history of essential hypertension, GERD, goiter, history of melanoma and hyperlipidemia who presents to the office today for full physical exam. Medical history, medications, allergies, surgical history, hospitalizations and family history reviewed patient in office today. # HTN: Improved. Overall mean BP noted to be in 120/80 range. Amlodipine last visit with Dr. Coker was added and his overall improved his BP. We discussed for now keeping BB and amlodipine dose, but pulse does occasionally dip into low 50's. He experiences occasional palpitations at times and had EKG done in the office in October. EKG showed irregular irregular rhythm. Will continue metoprolol for rate control and montior symptoms. Plan is to order a new blood pressure monitor as his old monitor seems to be giving higher readings than in office. Pt encouraged to continue to check his BP 3-4 x a week and re-evaluate at his 6 month follow up. 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 Plan is to discharge to PCP for further management of hypothyroidism. Need yearly or as needed TFT check for monitoring. Thyroid labs checked 12/21 and showed normal TSH and T3/T4 range. #Vitamin D deficiency: Will check Vitamin D and B12 levels to determine if there is an overlying cause to the patient's brain fog and fatigue symptoms. Follow up in 6 months. #Prostate Screening: PSA levels were ordered for annual screening protocol. Will go over results at 6 month follow up visit. #Vaccines: Denies. Physical Men Patient seen and examined. Comprehensive discussion was done on the following. 1. Nutrition: It is important to follow a healthy diet based on lots of vegetables and legumes and good fat. Avoid processed food and processed carbohydrates. Learn to prepare your own meals. Learn to read labels and avoid high fructose corn syrup, processed chemicals added to increase shelf life and preprepared meals. Avoid fast foods. Learn to eat slowly and plan meals for a week. Try to count calories and be mindful off daily calorie intake. Get into the habit of keeping an eye on your weight by using an appropriate scale. Learn to log exercise and discussed fitness Apps like Melty which can help keep log off calories taken versus calories burned. Local food should be preferred. Discussed Dirty Dozen Versus Clean Fifteen. Discussed healthy supplements like fish oil, Tumeric, Curcumin, Melatonin, Resveratrol, Probiotics, Vitamin-D, Alpha-Lipoic acid, Vitamin-D and coconut oil. 2. It is important to exercise regularly. Is a good habit to walk at least 30-45 minutes a day. Gentle weightlifting with standard precautions to protect the back. Finding activity like cycling or hiking and get into the habit of engaging in it. Stretching before and after the exercises important. It is also important to contact me if there are any problems like shortness of breath, chest pain, back pain and joint or muscle pain associated with the exercise. 3. Discussed age appropriate screening guidelines. Colonoscopy needs to start at age 50 with stool for occult blood as appropriate. There is a new test that can test for genetic abnormalities in the stool sample. This would not replace a colonoscopy but could be used as a screening tool for patients who do not want a colonoscopy. We discussed the importance of early detection of colon cancer. 4. Discussed current PSA screening. PSA screening can be done in most patients between age 50 and 65. However early detection of prostate cancer needs to carefully be balanced with complications with treatment. These include incontinence, impotence etc. Each patient should decide if they would like to have this test. 5. Discussed safe driving and no use of smart phone while driving 6. Age-appropriate immunizations were discussed. A tetanus booster is needed every 10 years. Flu vaccine is recommended every year just before the start of the flu season. Shingles vaccine is recommended after age 50 but not all insurances cover it. Pneumonia vaccine is given after age 65 unless there are certain comorbidities for which it is started earlier. 7. Diagnostic labs were discussed. These could include CBC CMP and lipids with fasting blood glucose and insulin levels. Vitamin D and hemoglobin A1c testing might be appropriate. All questions have been answered to patient's satisfaction. Patient verbalized understanding of diagnosis and treatments explained. Advised to call sooner prior to next visit it any questions/concerns arise. Case discussed with Regina GRESHAM who reviewed the assessment and plan. Chart, medications, labs, vital signs reviewed. Dictation was accomplished with the use of [employer] voice recognition software, which is prone to medical misidentifications and grammatical errors. This are unintentional and the practitioner does try to identify and correct these, but some could still be present. Please do not hesitate to contact practitioner for clarification. 12/27/2024 Anxiety (ICD-10 - F41.9) Erick is a pleasant 59-year-old male with a past medical history of essential hypertension, GERD, goiter, history of melanoma and hyperlipidemia who presents to the office today for full physical exam. Medical history, medications, allergies, surgical history, hospitalizations and family history reviewed patient in office today. # HTN: Improved. Overall mean BP noted to be in 120/80 range. Amlodipine last visit with Dr. Coker was added and his overall improved his BP. We discussed for now keeping BB and amlodipine dose, but pulse does occasionally dip into low 50's. He experiences occasional palpitations at times and had EKG done in the office in October. EKG showed irregular irregular rhythm. Will continue metoprolol for rate control and montior symptoms. Plan is to order a new blood pressure monitor as his old monitor seems to be giving higher readings than in office. Pt encouraged to continue to check his BP 3-4 x a week and re-evaluate at his 6 month follow up. 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 Plan is to discharge to PCP for further management of hypothyroidism. Need yearly or as needed TFT check for monitoring. Thyroid labs checked 12/21 and showed normal TSH and T3/T4 range. #Vitamin D deficiency: Will check Vitamin D and B12 levels to determine if there is an overlying cause to the patient's brain fog and fatigue symptoms. Follow up in 6 months. #Prostate Screening: PSA levels were ordered for annual screening protocol. Will go over results at 6 month follow up visit. #Vaccines: Denies. Physical Men Patient seen and examined. Comprehensive discussion was done on the following. 1. Nutrition: It is important to follow a healthy diet based on lots of vegetables and legumes and good fat. Avoid processed food and processed carbohydrates. Learn to prepare your own meals. Learn to read labels and avoid high fructose corn syrup, processed chemicals added to increase shelf life and preprepared meals. Avoid fast foods. Learn to eat slowly and plan meals for a week. Try to count calories and be mindful off daily calorie intake. Get into the habit of keeping an eye on your weight by using an appropriate scale. Learn to log exercise and discussed fitness Apps like Melty which can help keep log off calories taken versus calories burned. Local food should be preferred. Discussed Dirty Dozen Versus Clean Fifteen. Discussed healthy supplements like fish oil, Tumeric, Curcumin, Melatonin, Resveratrol, Probiotics, Vitamin-D, Alpha-Lipoic acid, Vitamin-D and coconut oil. 2. It is important to exercise regularly. Is a good habit to walk at least 30-45 minutes a day. Gentle weightlifting with standard precautions to protect the back. Finding activity like cycling or hiking and get into the habit of engaging in it. Stretching before and after the exercises important. It is also important to contact me if there are any problems like shortness of breath, chest pain, back pain and joint or muscle pain associated with the exercise. 3. Discussed age appropriate screening guidelines. Colonoscopy needs to start at age 50 with stool for occult blood as appropriate. There is a new test that can test for genetic abnormalities in the stool sample. This would not replace a colonoscopy but could be used as a screening tool for patients who do not want a colonoscopy. We discussed the importance of early detection of colon cancer. 4. Discussed current PSA screening. PSA screening can be done in most patients between age 50 and 65. However early detection of prostate cancer needs to carefully be balanced with complications with treatment. These include incontinence, impotence etc. Each patient should decide if they would like to have this test. 5. Discussed safe driving and no use of smart phone while driving 6. Age-appropriate immunizations were discussed. A tetanus booster is needed every 10 years. Flu vaccine is recommended every year just before the start of the flu season. Shingles vaccine is recommended after age 50 but not all insurances cover it. Pneumonia vaccine is given after age 65 unless there are certain comorbidities for which it is started earlier. 7. Diagnostic labs were discussed. These could include CBC CMP and lipids with fasting blood glucose and insulin levels. Vitamin D and hemoglobin A1c testing might be appropriate. All questions have been answered to patient's satisfaction. Patient verbalized understanding of diagnosis and treatments explained. Advised to call sooner prior to next visit it any questions/concerns arise. Case discussed with Regina GRESHAM who reviewed the assessment and plan. Chart, medications, labs, vital signs reviewed. Dictation was accomplished with the use of [employer] voice recognition software, which is prone to medical misidentifications and grammatical errors. This are unintentional and the practitioner does try to identify and correct these, but some could still be present. Please do not hesitate to contact practitioner for clarification. 12/27/2024 Elevated cholesterol (ICD-10 - E78.00) Erick is a pleasant 59-year-old male with a past medical history of essential hypertension, GERD, goiter, history of melanoma and hyperlipidemia who presents to the office today for full physical exam. Medical history, medications, allergies, surgical history, hospitalizations and family history reviewed patient in office today. # HTN: Improved. Overall mean BP noted to be in 120/80 range. Amlodipine last visit with Dr. Coker was added and his overall improved his BP. We discussed for now keeping BB and amlodipine dose, but pulse does occasionally dip into low 50's. He experiences occasional palpitations at times and had EKG done in the office in October. EKG showed irregular irregular rhythm. Will continue metoprolol for rate control and montior symptoms. Plan is to order a new blood pressure monitor as his old monitor seems to be giving higher readings than in office. Pt encouraged to continue to check his BP 3-4 x a week and re-evaluate at his 6 month follow up. 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 Plan is to discharge to PCP for further management of hypothyroidism. Need yearly or as needed TFT check for monitoring. Thyroid labs checked 12/21 and showed normal TSH and T3/T4 range. #Vitamin D deficiency: Will check Vitamin D and B12 levels to determine if there is an overlying cause to the patient's brain fog and fatigue symptoms. Follow up in 6 months. #Prostate Screening: PSA levels were ordered for annual screening protocol. Will go over results at 6 month follow up visit. #Vaccines: Denies. Physical Men Patient seen and examined. Comprehensive discussion was done on the following. 1. Nutrition: It is important to follow a healthy diet based on lots of vegetables and legumes and good fat. Avoid processed food and processed carbohydrates. Learn to prepare your own meals. Learn to read labels and avoid high fructose corn syrup, processed chemicals added to increase shelf life and preprepared meals. Avoid fast foods. Learn to eat slowly and plan meals for a week. Try to count calories and be mindful off daily calorie intake. Get into the habit of keeping an eye on your weight by using an appropriate scale. Learn to log exercise and discussed fitness Apps like Melty which can help keep log off calories taken versus calories burned. Local food should be preferred. Discussed Dirty Dozen Versus Clean Fifteen. Discussed healthy supplements like fish oil, Tumeric, Curcumin, Melatonin, Resveratrol, Probiotics, Vitamin-D, Alpha-Lipoic acid, Vitamin-D and coconut oil. 2. It is important to exercise regularly. Is a good habit to walk at least 30-45 minutes a day. Gentle weightlifting with standard precautions to protect the back. Finding activity like cycling or hiking and get into the habit of engaging in it. Stretching before and after the exercises important. It is also important to contact me if there are any problems like shortness of breath, chest pain, back pain and joint or muscle pain associated with the exercise. 3. Discussed age appropriate screening guidelines. Colonoscopy needs to start at age 50 with stool for occult blood as appropriate. There is a new test that can test for genetic abnormalities in the stool sample. This would not replace a colonoscopy but could be used as a screening tool for patients who do not want a colonoscopy. We discussed the importance of early detection of colon cancer. 4. Discussed current PSA screening. PSA screening can be done in most patients between age 50 and 65. However early detection of prostate cancer needs to carefully be balanced with complications with treatment. These include incontinence, impotence etc. Each patient should decide if they would like to have this test. 5. Discussed safe driving and no use of smart phone while driving 6. Age-appropriate immunizations were discussed. A tetanus booster is needed every 10 years. Flu vaccine is recommended every year just before the start of the flu season. Shingles vaccine is recommended after age 50 but not all insurances cover it. Pneumonia vaccine is given after age 65 unless there are certain comorbidities for which it is started earlier. 7. Diagnostic labs were discussed. These could include CBC CMP and lipids with fasting blood glucose and insulin levels. Vitamin D and hemoglobin A1c testing might be appropriate. All questions have been answered to patient's satisfaction. Patient verbalized understanding of diagnosis and treatments explained. Advised to call sooner prior to next visit it any questions/concerns arise. Case discussed with Regina GRESHAM who reviewed the assessment and plan. Chart, medications, labs, vital signs reviewed. Dictation was accomplished with the use of [employer]Form[employer] voice recognition software, which is prone to medical misidentifications and grammatical errors. This are unintentional and the practitioner does try to identify and correct these, but some could still be present. Please do not hesitate to contact practitioner for clarification. 12/27/2024 Multinodular goiter (ICD-10 - E04.2) Erick is a pleasant 59-year-old male with a past medical history of essential hypertension, GERD, goiter, history of melanoma and hyperlipidemia who presents to the office today for full physical exam. Medical history, medications, allergies, surgical history, hospitalizations and family history reviewed patient in office today. # HTN: Improved. Overall mean BP noted to be in 120/80 range. Amlodipine last visit with Dr. Coker was added and his overall improved his BP. We discussed for now keeping BB and amlodipine dose, but pulse does occasionally dip into low 50's. He experiences occasional palpitations at times and had EKG done in the office in October. EKG showed irregular irregular rhythm. Will continue metoprolol for rate control and montior symptoms. Plan is to order a new blood pressure monitor as his old monitor seems to be giving higher readings than in office. Pt encouraged to continue to check his BP 3-4 x a week and re-evaluate at his 6 month follow up. 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 Plan is to discharge to PCP for further management of hypothyroidism. Need yearly or as needed TFT check for monitoring. Thyroid labs checked 12/21 and showed normal TSH and T3/T4 range. #Vitamin D deficiency: Will check Vitamin D and B12 levels to determine if there is an overlying cause to the patient's brain fog and fatigue symptoms. Follow up in 6 months. #Prostate Screening: PSA levels were ordered for annual screening protocol. Will go over results at 6 month follow up visit. #Vaccines: Denies. Physical Men Patient seen and examined. Comprehensive discussion was done on the following. 1. Nutrition: It is important to follow a healthy diet based on lots of vegetables and legumes and good fat. Avoid processed food and processed carbohydrates. Learn to prepare your own meals. Learn to read labels and avoid high fructose corn syrup, processed chemicals added to increase shelf life and preprepared meals. Avoid fast foods. Learn to eat slowly and plan meals for a week. Try to count calories and be mindful off daily calorie intake. Get into the habit of keeping an eye on your weight by using an appropriate scale. Learn to log exercise and discussed fitness Apps like Melty which can help keep log off calories taken versus calories burned. Local food should be preferred. Discussed Dirty Dozen Versus Clean Fifteen. Discussed healthy supplements like fish oil, Tumeric, Curcumin, Melatonin, Resveratrol, Probiotics, Vitamin-D, Alpha-Lipoic acid, Vitamin-D and coconut oil. 2. It is important to exercise regularly. Is a good habit to walk at least 30-45 minutes a day. Gentle weightlifting with standard precautions to protect the back. Finding activity like cycling or hiking and get into the habit of engaging in it. Stretching before and after the exercises important. It is also important to contact me if there are any problems like shortness of breath, chest pain, back pain and joint or muscle pain associated with the exercise. 3. Discussed age appropriate screening guidelines. Colonoscopy needs to start at age 50 with stool for occult blood as appropriate. There is a new test that can test for genetic abnormalities in the stool sample. This would not replace a colonoscopy but could be used as a screening tool for patients who do not want a colonoscopy. We discussed the importance of early detection of colon cancer. 4. Discussed current PSA screening. PSA screening can be done in most patients between age 50 and 65. However early detection of prostate cancer needs to carefully be balanced with complications with treatment. These include incontinence, impotence etc. Each patient should decide if they would like to have this test. 5. Discussed safe driving and no use of smart phone while driving 6. Age-appropriate immunizations were discussed. A tetanus booster is needed every 10 years. Flu vaccine is recommended every year just before the start of the flu season. Shingles vaccine is recommended after age 50 but not all insurances cover it. Pneumonia vaccine is given after age 65 unless there are certain comorbidities for which it is started earlier. 7. Diagnostic labs were discussed. These could include CBC CMP and lipids with fasting blood glucose and insulin levels. Vitamin D and hemoglobin A1c testing might be appropriate. All questions have been answered to patient's satisfaction. Patient verbalized understanding of diagnosis and treatments explained. Advised to call sooner prior to next visit it any questions/concerns arise. Case discussed with Regina GRESHAM who reviewed the assessment and plan. Chart, medications, labs, vital signs reviewed. Dictation was accomplished with the use of [employer]FormTool voice recognition software, which is prone to medical misidentifications and grammatical errors. This are unintentional and the practitioner does try to identify and correct these, but some could still be present. Please do not hesitate to contact practitioner for clarification. Plan Of Treatment Pending Test Test Name Order Date LIPID PANEL, STANDARD 12/23/2022 LIPID PANEL, STANDARD 04/19/2024 LIPID PANEL, STANDARD 12/24/2023 LIPID PANEL, STANDARD 06/23/2023 COMPREHENSIVE METABOLIC PANEL 11/02/2024 COMPREHENSIVE METABOLIC PANEL 06/20/2022 COMPREHENSIVE METABOLIC PANEL 06/23/2023 COMPREHENSIVE METABOLIC PANEL 12/23/2022 COMPREHENSIVE METABOLIC PANEL 04/19/2024 CBC (INCLUDES DIFF/PLT) 04/19/2024 CBC (INCLUDES DIFF/PLT) 12/23/2022 CBC (INCLUDES DIFF/PLT) 06/23/2023 CBC (INCLUDES DIFF/PLT) 06/20/2022 CBC (INCLUDES DIFF/PLT) 11/02/2024 URINALYSIS, COMPLETE 06/23/2023 URINALYSIS, COMPLETE 06/20/2022 URINALYSIS, COMPLETE 12/23/2022 URINALYSIS, COMPLETE 04/19/2024 VITAMIN B12 12/27/2024 PSA (FREE AND TOTAL) 12/27/2024 PSA, TOTAL 06/23/2023 T4, FREE 12/24/2023 T4, FREE 06/20/2022 TSH 06/23/2023 TSH 06/20/2022 TSH 12/24/2023 TSH 06/19/2023 TSH W/REFLEX TO FT4 04/19/2024 T3, FREE 12/24/2023 VITAMIN D,25-OH,TOTAL,IA 12/27/2024 TSH+T4F+T3Free 11/02/2024 Next Appt Details Provider Name:VON FREDDY, 09:15:00 AM, [address], [place], [id number], Insurance Providers Payer Name Payer Address Payer Phone Subscriber Number Group Number Insured Name Patient Relationship to Insured Coverage Start Date Coverage End Date [facility] [address] [place] [address] [id number] Cayden Olguin Self - patient is the insured Medical (General) History Medical History History ICD Code Essential (primary) hypertension I10 GERD without esophagitis K21.9 Goiter E04.9 History of melanoma Z85.820 Hyperlipidemia E78.5 Surgical History Surgery Date(Month/Year) septoplasty hernia repair parathyroid surgery Thyroid surgery 2021 hernia repair, [facility] Feb Hospitalization History Reason Date(Month/Year) Colonoscopy 08/2024
== END 2025-05-25 11:50 | disposition home or self-care (01) ==
LOC: HO.HMGAL 11:28
PROVIDERS: PCP Family Medicine; Visit Provider Registered Nurse Emergency
DX: J30.89 Other allergic rhinitis (principal)
CPT/HCPCS: 95117; 95165

== ENCOUNTER 2025-06-22 08:42 | Outpatient (AMB) | payer OTHER, SELFPAY ==
--- OUTSIDE RECORDS SUMMARY | 2025-06-21 05:24 | XMS_ITS ---
Author Organization [facility] [address] Address [address] [place] [address] Care Team Providers Care Salvage Cutter Name Role Phone VON HAYES [phone] REASON FOR VISIT Lab Request Encounters Encounter Location Date Provider Diagnosis [facility] [address] [address] 06/21/2025 VON HAYES Encounter for genera l adult medical examination without abnormal findings Z00.00 ; Hyperlipidemia, unspecified E78.5 and Vitamin D deficiency E55.9 Assessments Encounter Date Diagnosis (ICD Code) Assessment Notes Treatment Notes Treatment Clinical Notes Section Notes 06/21/2025 Encounter for general adult medical examination without abnormal findings (ICD-10 - Z00.00) 06/21/2025 Hyperlipidemia, unspecified (ICD-10 - E78.5) 06/21/2025 Vitamin D deficiency (ICD-10 - E55.9) Plan Of Treatment Pending Test Test Name Order Date LIPID PANEL, STANDARD 06/21/2025 COMPREHENSIVE METABOLIC PANEL 06/21/2025 CBC (INCLUDES DIFF/PLT) 06/21/2025 VITAMIN D,25-OH,TOTAL,IA 06/21/2025 Next Appt Details Provider Name:VON HAYES, 09:15:00 AM, [address], [place], [address], Progress Notes * POLO, CaydenDOB:1965 (60 yo M)Acc No.[id number]:06/21/2025 Patient: Cayden AVENDAÑO :1965 A ge:60 Y S ex:Male Address:[address] [place] [address], [place] [address] Subjective: * Chief Complaints: * L ab Request * Medical History: * Surgical History: * Hospitalization/Major Diagno stic Procedure: * Medications: Objective: * Vitals: * Physical Examination: Assessment: * Assessment: 1. E ncounter for general adult medical examination without abnormal findings - Z00.00 ? 2 . H yperlipidemia, unspecified - E78.5 3 . V itamin D deficiency - E55.9 Plan: * Treatment: 2. H yperlipidemia, unspecified L AB: LIPID PANEL, STANDARD 3. V itamin D deficiency L AB: VITAMIN D,25-OH,TOTAL,IA * Procedure Codes: * true * Date: Generated for Deborah mclean/Rachel/Pilloitting on: 0 06/22/2025 09:49 AM EDT
--- OUTSIDE RECORDS SUMMARY | 2025-06-22 09:50 | XMS_ITS | Patient Health Record ---
Author Organization [facility] [address] Address [address] [place] [address] Care Team Providers Care Ripsaw Matcher Name Role Phone VON HAYES Unavailable [phone] BEATRIZ COKER Unavailable [phone] KUNAL SHAH Unavailable [phone] Allergies No Known Allergies Results Component Value Reference Range Notes PSA Total+% Free-[id number] Reviewed date:12/28/2024 09:04:23 AM Interpretation: Performing Lab:[facility], [address] [place] [address], [place], Phone - [phone], Director - [place] Notes/Report: Prostate Specific Ag 0.8 0.0-4.0 ng/mL Alison ECLIA methodology. . According to the [employer] [employer], Serum PSA should decrease and [...] 10% 20% >25.00% 5% 9% Please note: Catalona et al did not make specific recommendations regarding the use of percent free PSA for any other population of men. Vitamin D, 04-[id number] Reviewed date:12/28/2024 09:04:23 AM Interpretation: Performing Lab:[facility], [address] [facility], Phone - [phone], Director - [place] Notes/Report: Vitamin D, 25-Hydroxy 47.2 30.0-100.0 ng/mL Vitamin D deficiency has been defined by the [employer] and an Endocrine Society practice guideline as a level of serum 25-OH vitamin D less than 20 ng/mL (1,2). The Endocrine Society went on to further define vitamin D insufficiency as a level between 21 and 29 ng/mL (2). 1. IOM ([place] of [employer]). 2010. Dietary reference intakes for calcium and D. [place]: The National AcademCorgenix Press. 2. No MF, Yajaira LUCIO, Robert PATEL, et al. Evaluation, treatment, and prevention of vitamin D deficiency: an Endocrine Society clinical practice guideline. JCEM. 2010; 96(7):1911-30. Vitamin B20-282925 Reviewed date:12/28/2024 09:04:23 AM Interpretation: Performing Lab:[facility], [facility], Phone - [phone], Director - [place] Notes/Report: Vitamin B12 956 755-0352 pg/mL Comp. Metabolic Panel (14)-3 [id number] Reviewed date:11/16/2024 11:40:18 AM Interpretation: Performing Lab:[facility], [address] [facility], Phone - [phone], Director - [place] Notes/Report: Glucose 118 70-99 mg/dL BUN 17 [...] (SGPT) 5 0-44 IU/L Triiodothyronine (T3), Free- [id number] Reviewed date:11/05/2024 08:16:15 AM Interpretation: Performing Lab:[facility], [address] [facility], Phone - [phone], Director - MDJodry Notes/Report: Triiodothyronine (T3), Free 2.9 2.0-4.4 pg/mL CBC With Differential/Platel et-[id number] Reviewed date:11/05/2024 08:16:15 AM Interpretation: Performing Lab:[facility], [address] [facility], Phone - [phone], Director - MDJodry Notes/Report: WBC 6.3 3.4-10.8 x10E3/uL RBC 4.81 [...] % Immature Grans (Abs) 0.0 0.0-0.1 x10E3/uL TSH-[id number] Reviewed date:11/05/2024 08:16:15 AM Interpretation: Performing [facility], [address] [facility], Phone - [phone], Director - [place] Notes/Report: TSH 2.180 0.450-4.500 uIU/mL Thyroxine (T4) Free, Direct- [id number] Reviewed date:11/05/2024 08:16:15 AM Interpretation: Performing Lab:[facility] [place], [address] [facility], [place], Phone - [phone], Director - [place] Notes/Report: T4,Free(Direct) 1.27 0.82-1.77 ng/dL EKG Reviewed [...] 0 RR_NumNormalBeats 0 RR_SystolicBP 0 RR_SystolicBP 0 Ambig Abbrev LP Default Reviewed date:12/22/2024 08:39:44 AM Interpretation: Performing Lab:[address], Phone - [phone], Director - [facility] Notes/Report: Myah Short LP Default A hand-written panel/profile was received from your office. In accordance with the [facility] Ambiguous Test Code Policy dated March 2003, we have completed your order by using the closest currently or formerly recognized AMA panel. We have assigned Lipid Panel, Test Code #740895 to this request. If this is not the testing you wished to receive on this specimen, please contact the [employer] Client Inquiry/Technical Services Department to clarify the test order. We appreciate your business. TSH Rfx on Abnormal to Free [id number] Reviewed date:12/22/2024 08:39:44 AM Interpretation: Performing Lab:[facility], [address] [place] [address], Phone - [phone], Director - [place] Notes/Report: TSH 3.230 0.450-4.500 uIU/mL Myah Short CMP14 Default A hand-written panel/profile was received from your office. In accordance with the [facility] Ambiguous Test Code Policy dated March 2003, we have completed your order by using the closest currently or formerly recognized AMA panel. We have assigned Comprehensive Metabolic Panel (14), Test Code #[id number] to this request. If this is not the testing you wished to receive on this specimen, please contact the [facility] Client Inquiry/Technical Services Department to clarify the test order. We appreciate your business. Comp. Metabolic Panel (14)-3 Reviewed date:12/22/2024 08:42:55 AM Interpretation: Performing Lab:[facility], [address] [facility], Phone - [phone], Director - MDJodry Notes/Report: Glucose 102 70-99 mg/dL BUN 15 [...] IU/L ALT (SGPT) 5 0-44 IU/L Lipid Panel-[id number] Reviewed date:12/22/2024 08:39:44 AM Interpretation: Performing Lab:[facility], [address] [facility], [place], Phone - [phone], Director - MDBessydry Notes/Report: Cholesterol, Total 180 100-199 mg/dL Triglycerides 67 0-149 mg/dL HDL Cholesterol 83 >39 mg/dL VLDL Cholesterol Williams 13 5-40 mg/dL LDL Chol Calc (NIH) 84 0-99 mg/dL CBC With Differential/Platel et-[id number] Reviewed date:12/22/2024 08:39:44 AM Interpretation: Performing Lab:[facility], [address] [facility], [place], Phone - [phone], Director - MDJodry Notes/Report: WBC 6.2 3.4-10.8 x10E3/uL RBC 4.70 [...] Immature Grans (Abs) 0.0 0.0-0.1 x10E3/uL Urinalysis, Complete-[id number] Reviewed date:12/22/2024 08:39:44 AM Interpretation: Performing Lab:[facility] [place], [address] [place] [address], [place], Phone - [phone], Director - [place] Notes/Report: Specific [place] 1.018 1.005-1.030 pH 5.5 5.0-7.5 Urine-Color Yellow [...] seen /lpf Bacteria None seen None seen/Few Reason For Referral Reason Evaluate & Treat Diagnosis 1 Hemorrhoids, externa l (K64.4) Referral Organization [facility] [address] Referring Provider First Name VON Referring Provider Last Name FREDDY Referring Provider Speciality Internal M edicine Referred Provider Specialty General Surg sloane General Notes Tasha Livingston 2024 08:25:22 AM > [facility] form filled and faxed , Phone, , [...] a day; Duration: 30 days 01/26/2025 Unknown Omeprazole 20 MG TAKE 1 CAPSULE BY MO UTH EVERY DAY 1/2 TO 1 HOUR BEFORE MORNING MEAL; Duration: 90 Active Sildenafil Citrate 100 MG 1 tablet as ne eded Orally Once a day; Duration: 7 days 10/31/2023 Active Atorvastatin Calcium 20 MG 1 tablet [...] Notes: Tob: Never ETOH: Social Drug: Marijuana Benzene Operator/Licensed Investment Sales Assistant Tob: Never ETOH: Social Drug: Marijuana Benzene Operator/Licensed Investment Sales Assistant Tob: Never ETOH: Social Drug: Marijuana Benzene Operator/Licensed Investment Sales Assistant Tob: Never ETOH: Social Drug: Marijuana Benzene Operator/Licensed Investment Sales Assistant Problems Problem Type SNOMED Code ICD Code Onset Dates Problem Status W/U Status Risk Notes Problem Goiter (6674353) Iodine-deficien cy related (endemic) goiter, unspecified (E01.2) Active confirmed Problem Hyperlipidemia (48911344) Hyperlipidemia, unspecified (E78.5) Active confirmed Problem Essential hypertension (05370960) Essential (primary) hypertension (I10) Active confirmed Problem Endocrine/metabolic screening (935880162) Encounter for screening for other suspected endocrine disorder (Z13.29) Active confirmed Problem Acquired hypothyroidism (418132054) Acquired hypothyroidism (E03.9) Active confirmed Problem Anxiety (67528769) Anxiety (F41.9) Active confi rmed Problem Hyperlipoproteinemia (0100361) Acquired hyperlipoproteinemia (E78.5) Active confirmed Problem Adult health examination (911928923) Adult general medical exam (Z00.00) Active confirmed Problem Hypothyroidism (40335536) Hypothyroidism, unspecified type (E03.9) Active confirmed Problem External hemorrhoid (80357536) External hemorrhoid (K64.4) Active confirmed Problem Vitamin D deficiency (09851997) Vitamin D deficiency (E55.9) Active confirmed Problem Accelerated essentia l hypertension (71316504) Accelerated essential hypertension (I10) Active confirmed Problem Hypertension (25329279) Uncontrolled hypertension (I10) Active confirmed Problem Essential hypertension (08861050) Hypertension, unspecified type (I10) Active confirmed Problem Pure hypercholesterolemia (977215040) Elevated cholesterol (E78.00) Active confirmed Problem Vitamin B>12< deficiency anaemia (78912680) Anemia due to vitamin B12 deficiency, unspecified B12 deficiency type (D51.9) Active confirmed Problem Gastroesophageal reflux disease (680099316) GERD without esophagitis (K21.9) Active confirmed Problem Hemorrhoids (disorder) (05485875) Hemorrhoids, external (K64.4) Active confirmed Problem Multinodular goiter (903237692) Multinodular goiter (E04.2) Active confirmed Problem Screening for malignant neoplasm of prostate (839845471) Encounter for prostate cancer screening (Z12.5) Active confirmed Problem Lipid screening (949487084) Lipid screening (Z13.220) Active confirmed Problem History of malignant melanoma of the skin (408780042249) History of melanoma (Z85.820) Active confirmed Problem Hyperlipidemia (15483559) Hyperlipidemia (E78.5) Active confirmed Problem Goiter (5525131) Goiter (E04.9) Active confirme d Vital Signs Heart Rate 55 /min 01/26/2025 Oximetry 97 % 01/26/2025 Blood pressure diastolic 88 mm Hg 01/26/2025 Height 71 in 01/26/2025 Blood pressure systolic 138 mm Hg 01/26/2025 Weight 196.8 lbs 01/26/2025 BMI 27.45 kg/m2 01/26/2025 Encounters Encounter Location Date Provider Diagnosis [facility] [address] [place], [place] 11/02/2024 KUNAL ALYSSA Screening for heart disease Z13.6 ; Uncontrolled hypertension I10 and Goiter E04.[address] [facility] [address] [place], [place] 11/09/2024 KUNAL ALYSSA Screening for heart disease Z13.6 ; Uncontrolled hypertension I10 and Goiter E04.[address] [facility] [address] [place], [place] 12/27/2024 VON FREDDY Well adult exam Z00. 00 ; Essential (primary) hypertension I10 ; History of melanoma Z85.820 ; Goiter E04.9 ; Anxiety F41.9 ; Elevated cholesterol E78.00 and Multinodular goiter E04.[address] [facility] [address] [place], [place] 01/26/2025 VON FREDDY External hemorrhoid K64.4 ; Essential (primary) hypertension I10 and Internal hemorrhoid K64.[address] [facility] [address] [place], [place] 08/12/[address] TALAL COKER [facility] [address] [place], [place] 11/02/2024 TALAL COKER Essential (primary) hypertension I10 and Hypothyroidism, unspecified type E03.9 [facility] [address] [place] [address] 12/27/2024 VON FREDDY [facility] [address] [place], [place] 11/01/2024 TALAL COKER [facility] [address] [place] [address] 01/12/2025 VON FREDDY [facility] [address] [place], [place] 02/01/2025 VON FREDDY [facility] [address] [place] [address] 03/15/2025 VON FREDDY [facility] [address] [place], [place] 03/15/2025 VON FREDDY [facility] [address] [facility] [address] [place] [address] 04/14/2025 VON FREDDY [facility] [address] [address] 04/15/2025 VON FREDDY [facility] [address] [address] 05/18/2025 VON FREDDY [facility] [address] [address] 06/21/2025 VON FREDDY Encounter for genera l adult medical examination [...] Dictation was accomplished with the use of Tyto voice recognition software, prone to medical misidentifications [...] Dictation was accomplished with the use of Tyto voice recognition software, prone to medical misidentifications [...] Dictation was accomplished with the use of Tyto voice recognition software, prone to medical misidentifications [...] Dictation was accomplished with the use of Tyto voice recognition software, prone to medical misidentifications [...] log exercise and discussed fitness Apps like [email or web address] which can help keep log off calories [...] Dictation was accomplished with the use of Tyto voice recognition software, which is prone to [...] log exercise and discussed fitness Apps like [email or web address] which can help keep log off calories [...] Dictation was accomplished with the use of Tyto voice recognition software, which is prone to [...] denies any pain upon rectal exam today. unit assistant present in office today for rectal [...] Dictation was accomplished with the use of Tyto voice recognition software, which is prone to [...] denies any pain upon rectal exam today. unit assistant present in office today for rectal [...] Dictation was accomplished with the use of Tyto voice recognition software, which is prone to medical misidentifications and grammatical errors. This are unintentional and the practitioner does try to identify and correct these, but some could still be present. Please do not hesitate to contact practitioner for clarification. 06/21/2025 Encounter for general adult medical examination without abnormal findings (ICD-10 - Z00.00) 01/26/2025 Internal hemorrhoid (ICD-10 - K64.8) Erick [...] denies any pain upon rectal exam today. unit assistant present in office today for rectal [...] Dictation was accomplished with the use of Tyto voice recognition software, which is prone to medical misidentifications and grammatical errors. This are unintentional and the practitioner does try to identify and correct these, but some could still be present. Please do not hesitate to contact practitioner for clarification. 06/21/2025 Hyperlipidemia, unspecified (ICD-10 - E78.5) 12/27/2024 History of melanoma (ICD-10 - Z85.820) [...] log exercise and discussed fitness Apps like [email or web address] which can help keep log off calories [...] Dictation was accomplished with the use of Tyto voice recognition software, which is prone to [...] Dictation was accomplished with the use of Tyto voice recognition software, prone to medical misidentifications [...] Dictation was accomplished with the use of Tyto voice recognition software, prone to medical misidentifications [...] log exercise and discussed fitness Apps like [email or web address] which can help keep log off calories [...] Dictation was accomplished with the use of Tyto voice recognition software, which is prone to medical misidentifications and grammatical errors. This are unintentional and the practitioner does try to identify and correct these, but some could still be present. Please do not hesitate to contact practitioner for clarification. 06/21/2025 Vitamin D deficiency (ICD-10 - E55.9) 12/27/2024 Anxiety (ICD-10 - F41.9) Erick is [...] log exercise and discussed fitness Apps like [email or web address] which can help keep log off calories [...] Dictation was accomplished with the use of Tyto voice recognition software, which is prone to [...] log exercise and discussed fitness Apps like [email or web address] which can help keep log off calories [...] Dictation was accomplished with the use of Tyto voice recognition software, which is prone to [...] log exercise and discussed fitness Apps like [email or web address] which can help keep log off calories [...] Dictation was accomplished with the use of Tyto voice recognition software, which is prone to medical misidentifications and grammatical errors. This are unintentional and the practitioner does try to identify and correct these, but some could still be present. Please do not hesitate to contact practitioner for clarification. Plan Of Treatment Pending Test Test Name Order Date LIPID PANEL, STANDARD 12/23/2022 LIPID PANEL, STANDARD 06/23/2023 LIPID PANEL, STANDARD 12/24/2023 LIPID PANEL, STANDARD 04/19/2024 COMPREHENSIVE METABOLIC PANEL 04/19/2024 COMPREHENSIVE METABOLIC PANEL 11/02/2024 COMPREHENSIVE METABOLIC PANEL 06/23/2023 COMPREHENSIVE METABOLIC PANEL 12/23/2022 COMPREHENSIVE METABOLIC PANEL 06/20/2022 CBC (INCLUDES DIFF/PLT) 06/20/2022 CBC (INCLUDES DIFF/PLT) 12/23/2022 CBC (INCLUDES DIFF/PLT) 06/23/2023 CBC (INCLUDES DIFF/PLT) 11/02/2024 CBC (INCLUDES DIFF/PLT) 04/19/2024 URINALYSIS, COMPLETE 04/19/2024 URINALYSIS, COMPLETE 12/23/2022 URINALYSIS, COMPLETE 06/23/2023 URINALYSIS, COMPLETE 06/20/2022 VITAMIN B12 12/27/2024 PSA (FREE AND TOTAL) 12/27/2024 PSA, TOTAL 06/23/2023 T4, FREE 06/20/2022 T4, FREE 12/24/2023 TSH 12/24/2023 TSH 06/23/2023 TSH 06/20/2022 TSH 06/19/2023 TSH W/REFLEX TO FT4 04/19/2024 T3, FREE 12/24/2023 VITAMIN D,25-OH,TOTAL,IA 12/27/2024 TSH+T4F+T3Free 11/02/2024 Next Appt Details Provider Name:VON HAYES, 09:15:00 AM, [address], [place], [address], Insurance Providers Payer Name Payer Address Payer Phone Subscriber Number Group Number Insured Name Patient Relationship to Insured Coverage Start Date Coverage End Date [facility] [address] [place] [address] [id number] Cayden Olguin Self - patient is the insured Medical (General) History Medical History History ICD Code Essential (primary) hypertension I10 GERD without esophagitis K21.9 Goiter E04.9 History of melanoma Z85.820 Hyperlipidemia E78.5 Surgical History Surgery Date(Month/Year) septoplasty hernia repair parathyroid surgery Thyroid surgery 2021 hernia repair, [facility]. Lee [facility] Feb Hospitalization History Reason Date(Month/Year) Colonoscopy 08/2024
--- OUTSIDE RECORDS SUMMARY | 2025-06-22 09:50 | XMS_ITS | Clinical Summary ---
Author Organization [facility] Address [address] [place] [address] Care Team Providers Care Monkey Trainer Name Role Phone Ximena Coker MD Primary Care Provider [phone] Social History Tobacco Use Types Packs/Day Years [...] 04/20/2024 Social Influencers of Health Screening 04/20/2024 Depression Screening 09/29/2024 COVID-19 Vaccine ( - 2023-2 5 season) 2025 Influenza Vaccine (#1) 2025 RSV Immunization Adult [...] age to complete this topic Care Teams Monkey Trainer Relationship Specialty Start Date End Date Ximena Coker MD PCP - General 12/26/23
== END 2025-06-22 08:44 | disposition home or self-care (01) ==
LOC: HO.HMGAL 08:42
PROVIDERS: PCP Internal Medicine; Visit Provider Registered Nurse Emergency
DX: J30.89 Other allergic rhinitis (principal)
CPT/HCPCS: 95117; 95165

== ENCOUNTER 2025-07-27 11:27 | Outpatient (AMB) | payer OTHER, SELFPAY ==
--- OUTSIDE RECORDS SUMMARY | 2025-07-27 14:42 | XMS_ITS | Patient Health Record ---
[facility] [address] Address [address] [place] [address] Care Team Providers Care Client Development Director Name Role Phone VON HAYES Unavailable [phone] COKERBEATRIZ SHELTON Unavailable [phone] ALYSSA KUNAL Unavailable [phone] LuzBekha brown Unavailable [phone] Allergies No Known Allergies Results Component Value Reference Range Notes Thyroxine (T4) Free, Direct- [id number] Reviewed date:11/05/2024 08:16:15 AM Interpretation: Performing Lab:[facility] [place], [address] [place] [address], Phone - [phone], Director - MDJodry Notes/Report: T4,Free(Direct) 1.27 0.82-1.77 ng/dL TSH-[id number] Reviewed date:11/05/2024 08:16:15 AM Interpretation: Performing Lab:[facility] [place], [address] [place] [address], Phone - [phone], Director - MDJodry Notes/Report: TSH 2.180 0.450-4.500 uIU/mL CBC With Differential/Platel et-[id number] Reviewed date:11/05/2024 08:16:15 AM Interpretation: Performing Lab:[facility] [place], [address] [place] [address], Phone - [phone], Director - MDJodry Notes/Report: WBC 6.3 3.4-10.8 [...] % Immature Grans (Abs) 0.0 0.0-0.1 x10E3/uL Triiodothyronine (T3), Free- [id number] Reviewed date:11/05/2024 08:16:15 AM Interpretation: Performing Lab:[facility], [address] [place] [address], Phone - [phone], Director - MDJodry Notes/Report: Triiodothyronine (T3), Free 2.9 2.0-4.4 pg/mL Comp. Metabolic Panel (14)-3 [id number] Reviewed date:11/16/2024 11:40:18 AM Interpretation: Performing Lab:[facility], [address] [facility], Phone - [phone], Director - MDJodry Notes/Report: Glucose 118 70-99 mg/dL BUN 17 [...] 0-40 IU/L ALT (SGPT) 5 0-44 IU/L Vitamin [id number] Reviewed date:12/28/2024 09:04:23 AM Interpretation: Performing Lab:[facility], [address], [place], Phone - [phone], Director - Esperanza Notes/Report: Vitamin B12 077 345-8293 pg/mL EKG Reviewed date:11/02/2024 03:07:23 PM Interpretation: Performing [...] 0 RR_NumNormalBeats 0 RR_SystolicBP 0 RR_SystolicBP 0 PSA Total+% Free-[id number] Reviewed date:12/28/2024 09:04:23 AM Interpretation: Performing Lab:[facility] [place], [address] [facility], Phone - [phone], Director - Esperanza Notes/Report: Prostate Specific Ag 0.8 0.0-4.0 ng/mL Alison ECLIA methodology. . According to the [place] [employer], Serum PSA should decrease and [...] any other population of men. Vitamin D, 52-Lebdxah-[id number] Reviewed date:12/28/2024 09:04:23 AM Interpretation: Performing Lab:[facility] [place], [address] [facility], [place], Phone - [phone], Director - Esperanza Notes/Report: Vitamin D, 25-Hydroxy 47.2 30.0-100.0 ng/mL Vitamin D deficiency has been defined by the [place] [employer] and an Endocrine Society practice guideline as a level of serum 25-OH vitamin D less than 20 ng/mL (1,2). The Endocrine Society went on to further define vitamin D insufficiency as a level between 21 and 29 ng/mL (2). 1. IOM ([place] [employer]). 2010. Dietary reference intakes for calcium and D. [place]: The National Academies Press. 2. No MF, Yajaira LUCIO, Robert PATEL, et al. Evaluation, treatment, and prevention of vitamin D deficiency: an Endocrine Society clinical practice guideline. JCEM. 2010; 96(0):1911-30. T4F+T3Free Reviewed date:07/06/2025 07:59:57 AM Interpretation: Performing Lab:[facility], [address] [facility], Phone - [phone], Director - Esperanza Notes/Report: Thyroxine (T-4), Serum 7.5 Reference Range: Adults: 4.2 - 13.0 Free T-3 2.7 Reference Range: >=20y: 2.0 - 4.4 Triiodothyronine (T-3), Serum 95 Reference Range: Adults: 55 - 170 Free Thyroxine 1.18 Reference Range: >=20y: 0.82 - 1.77 Comp. Metabolic Panel (14)-3 [id number] Reviewed date:07/06/2025 11:42:10 AM Interpretation: Performing Lab:[facility] [place], [address] [facility], [place], Phone - [phone], Director - Esperanza Notes/Report: Glucose 75 70-99 mg/dL BUN 17 8-27 mg/dL Creatinine 0.92 0.76-1.27 mg/dL eGFR 94 >59 mL/min/1.73 BUN/Creatinine Ratio 18 10-24 Sodium 140 134-144 mmol/L Potassium 4.3 3.5-5.2 mmol/L Chloride 103 96-106 mmol/L Carbon Dioxide, Total 19 20-29 mmol/L Calcium 9.3 8.6-10.2 mg/dL Protein, Total 7.5 6.0-8.5 g/dL Albumin 4.4 3.9-4.9 g/dL Globulin, Total 3.1 1.5-4.5 g/dL Bilirubin, Total 0.8 0.0-1.2 mg/dL Alkaline Phosphatase 78 47-123 IU/L AST (SGOT) 19 0-40 IU/L ALT (SGPT) 7 0-44 IU/L CBC With Differential/Platel et-[id number] Reviewed date:07/06/2025 07:59:57 AM Interpretation: Performing Lab:[facility] [place], [address] [facility], Phone - [phone], Director - Esperanza Notes/Report: WBC 7.4 3.4-10.8 x10E3/uL RBC 4.65 4.14-5.80 x10E6/uL Hemoglobin 13.6 13.0-17.7 g/dL Hematocrit 41.4 37.5-51.0 % MCV 89 79-97 fL MCH 29.2 26.6-33.0 pg MCHC 32.9 31.5-35.7 g/dL RDW 12.6 11.6-15.4 % Platelets 256 150-450 x10E3/uL Neutrophils 52 Not Estab. % Lymphs 30 Not Estab. % Monocytes 10 Not Estab. % Eos 6 Not Estab. % Basos 2 Not Estab. % Neutrophils (Absolute) 3.9 1.4-7.0 x10E3/uL Lymphs (Absolute) 2.2 0.7-3.1 x10E3/uL Monocytes(Absolute) 0.7 0.1-0.9 x10E3/uL Eos (Absolute) 0.4 0.0-0.4 x10E3/uL Baso (Absolute) 0.1 0.0-0.2 x10E3/uL Immature Granulocytes 0 Not Estab. % Immature Grans (Abs) 0.0 0.0-0.1 x10E3/uL TSH-[id number] Reviewed date:07/06/2025 07:59:57 AM Interpretation: Performing Lab:[facility] [place], [address] [facility], [place], Phone - [phone], Director - Esperanza Notes/Report: TSH 1.490 0.450-4.500 uIU/mL Myah Short LP Default Reviewed date:12/22/2024 08:39:44 AM Interpretation: Performing Lab:[facility] [place], [address] [facility], [place], Phone - [phone], Director - Jodry Notes/Report: Myah Short LP Default A hand-written panel/profile was received from your office. In accordance with the [facility] Ambiguous Test Code Policy dated March 2003, we have completed your order by using the closest currently or formerly recognized AMA panel. We have assigned Lipid Panel, Test Code #913510 to this request. If this is not the testing you wished to receive on this specimen, please contact the [facility] Client Inquiry/Technical Services Department to clarify the test order. We appreciate your business. TSH Rfx on Abnormal to Free [id number] Reviewed date:12/22/2024 08:39:44 AM Interpretation: Performing Lab:[facility], [address] [place] [address], Phone - [phone], Director - MDJodry Notes/Report: TSH 3.230 0.450-4.500 uIU/mL Myah Rosado CMP14 Default A hand-written panel/profile was received from your office. In accordance with the [facility] Ambiguous Test Code Policy dated March 2003, we have completed your order by using the closest currently or formerly recognized AMA panel. We have assigned Comprehensive Metabolic Panel (14), Test Code #[id number] to this request. If this is not the testing you wished to receive on this specimen, please contact the [facility] Client Inquiry/Technical Services Department to clarify the test order. We appreciate your business. Comp. Metabolic Panel (14)-3 Reviewed date:12/22/2024 08:42:55 AM Interpretation: Performing Lab:[facility] [place], [address] [facility], [place], Phone - [phone], Director - Jodry Notes/Report: Glucose 102 70-99 mg/dL BUN 15 [...] IU/L ALT (SGPT) 5 0-44 IU/L Lipid Panel-[id number] Reviewed date:12/22/2024 08:39:44 AM Interpretation: Performing Lab:[facility] [place], [address] [facility], [place], Phone - [phone], Director - Esperanza Notes/Report: Cholesterol, Total 180 100-199 mg/dL Triglycerides 67 0-149 mg/dL HDL Cholesterol 83 >39 mg/dL VLDL Cholesterol Williams 13 5-40 mg/dL LDL Chol Calc (NIH) 84 0-99 mg/dL CBC With Differential/Platel et-[id number] Reviewed date:12/22/2024 08:39:44 AM Interpretation: Performing Lab:[facility] [place], [address] [facility], [place], Phone - [phone], Director - Esperanza Notes/Report: WBC 6.2 3.4-10.8 x10E3/uL RBC 4.70 [...] Immature Grans (Abs) 0.0 0.0-0.1 x10E3/uL Urinalysis, Complete-[id number] Reviewed date:12/22/2024 08:39:44 AM Interpretation: Performing Lab:[facility] [place], [address], [place], Phone - [phone], Director - Esperanza Notes/Report: Specific [place] 1.018 1.005-1.030 pH 5.5 5.0-7.5 Urine-Color Yellow [...] seen /lpf Bacteria None seen None seen/Few EKG Reviewed date:06/27/2025 10:11:19 AM Interpretation: Performing Lab: Notes/Report: ECGDiastolicBP 78 ECGHr 53 ECGPRInterval 148 ECGPWaveAxis 37 ECGQRSDuration 100 ECGQrsWaveAxis -3 ECGQTcInterval 412 ECGQTInterval 424 ECGSystolicBP 120 ECGTWaveAxis -1 RR_DiastolicBP 0 RR_MaxRRInterval 0 RR_MeanHR 0 RR_MeanRRInterval 0 RR_MinRRInterval 0 RR_NumBeats 0 RR_NumNormalBeats 0 RR_SystolicBP 0 Reason For Referral Reason Evaluate & Treat Diagnosis 1 Hemorrhoids, externa l (K64.4) Referral Organization [facility] [address] Referring Provider First Name VON Referring Provider Last Name FREDDY Referring Provider Speciality Internal M edicine Referred Provider Specialty General Surg sloane General Notes Tasha Livingston 2024 08:25:22 AM > [facility] form filled and faxed , Phone, , Fax, Clinical Notes Lina Adorno 06/2025 02:14:15 PM > Patient was scheduled for 04/06 but canceled during the appointment confirmation call, stating that the appointment was no longer needed Referral Priority Routine Medications Medication SIG (Take, Route, Frequency, Duration) Notes Start Date End Date Status Atorvastatin Calcium 20 MG 1 tablet Oral ly Once a day; Duration: 90 days Active Irbesartan 300 MG TAKE 1 TABLET BY ROSENDO TH EVERY DAY FOR 90 DAYS; Duration: 90 Active Vitamin D 50 MCG (1999) 1 capsule Ora lly Once a day Active Levothyroxine Sodium 88 MCG TAKE 1 TABLET BY MOUTH EVERY DAY IN THE MORNING ON EMPTY STOMACH FOR 90 DAYS; Duration: 90 Active amLODIPine Besylate 10 MG TAKE 1 TABLET BY MOUTH EVERY DAY; Duration: 90 Active Azithromycin 250 MG 2 tablets once a day for 1 day, 1 tablet once a day for 4 days Orally daily; Duration: 5 days 07/18/2025 Active Omeprazole 20 MG TAKE 1 CAPSULE BY MOUTH EVERY DAY 1/2 TO 1 HOUR BEFORE MORNING MEAL; Duration: 90 days NEEDED Active Sildenafil Citrate 100 MG 1 tablet as ne eded Orally Once a day; Duration: 7 days 10/31/2023 Active Immunizations Vaccine Route Administration Date Status Comme nts influenza IM Intramuscular 06/28/2022 Administered influenza IM Intramuscular 06/23/2023 Administered influenza IM Intramuscular 06/27/2025 Administered Social History Tobacco Use: Social History Observation Description Date Details (start date - stop date) Never Smoker NA - NA Tobacco Use/Smoking Question Answer Notes Are you a nonsmoker Section Notes: Tob: Never ETOH: 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 Tob: Never ETOH: 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 Tob: Never ETOH: 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 Tob: Never ETOH: 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 Tob: Never ETOH: 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 Tob: Never ETOH: 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 Tob: Never ETOH: 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 Problems Problem Type SNOMED Code ICD Code Onset Dates Problem Status W/U Status Risk Notes Problem Goiter (7103715) Iodine-deficien cy related (endemic) goiter, unspecified (E01.2) Active confirmed Problem Hyperlipidemia (07153004) Hyperlipidemia, unspecified (E78.5) Active confirmed Problem Essential hypertension (31652414) Essential (primary) hypertension (I10) Active confirmed Problem Endocrine/metabolic screening (667002444) Encounter for screening for other suspected endocrine disorder (Z13.29) Active confirmed Problem Acquired hypothyroidism (960292995) Acquired hypothyroidism (E03.9) Active confirmed Problem Anxiety (12660705) Anxiety (F41.9) Active confi rmed Problem Hyperlipoproteinemia (7137950) Acquired hyperlipoproteinemia (E78.5) Active confirmed Problem Adult health examination (714292169) Adult general medical exam (Z00.00) Active confirmed Problem Hypothyroidism (33959720) Hypothyroidism, unspecified type (E03.9) Active confirmed Problem External hemorrhoid (22009738) External hemorrhoid (K64.4) Active confirmed Problem Vitamin D deficiency (70108378) Vitamin D deficiency (E55.9) Active confirmed Problem Accelerated essentia l hypertension (50236895) Accelerated essential hypertension (I10) Active confirmed Problem Hypertension (26558978) Uncontrolled hypertension (I10) Active confirmed Problem Essential hypertension (27556293) Hypertension, unspecified type (I10) Active confirmed Problem Chronic fatigue syndrome (39359370) Chronic fatigue (R53.82) Active confirmed Problem Pure hypercholesterolemia (934137145) Elevated cholesterol (E78.00) Active confirmed Problem Vitamin B>12< deficiency anaemia (84830221) Anemia due to vitamin B12 deficiency, unspecified B12 deficiency type (D51.9) Active confirmed Problem Gastroesophageal reflux disease (080737978) GERD without esophagitis (K21.9) Active confirmed Problem Hemorrhoids (disorder) (09663244) Hemorrhoids, external (K64.4) Active confirmed Problem Bradycardia (52172724) Bradycardia (R00.1) Active confirmed Problem Multinodular goiter (258422519) Multinodular goiter (E04.2) Active confirmed Problem Screening for malignant neoplasm of prostate (882842094) Encounter for prostate cancer screening (Z12.5) Active confirmed Problem Lipid screening (776934460) Lipid screening (Z13.220) Active confirmed Problem Erectile dysfunction (disorder) (332806984) Erectile disorder (N52.9) Active confirmed Problem History of malignant melanoma of the skin (065478607947) History of melanoma (Z85.820) Active confirmed Problem Hyperlipidemia (76481107) Hyperlipidemia (E78.5) Active confirmed Problem Goiter (8834282) Goiter (E04.9) Active confirme d Vital Signs Heart Rate 77 /min 07/18/2025 Oximetry 98 % 07/18/2025 Blood pressure diastolic 72 mm Hg 07/18/2025 Height 71 in 07/18/2025 Blood pressure systolic 136 mm Hg 07/18/2025 Weight 198.5 lbs 07/18/2025 BMI 27.68 kg/m2 07/18/2025 Encounters Encounter Location Date Provider Diagnosis [address] [address] 11/02/2024 KUNAL ALYSSA Screening for heart disease Z13.6 ; Uncontrolled hypertension I10 and Goiter E04.[address] 11/09/2024 KUNAL ALYSSA Screening for heart disease Z13.6 ; Uncontrolled hypertension I10 and Goiter E04.[address] 12/27/2024 VON FREDDY Well adult exam Z00. 00 ; Essential (primary) hypertension I10 ; History of melanoma Z85.820 ; Goiter E04.9 ; Anxiety F41.9 ; Elevated cholesterol E78.00 and Multinodular goiter E04.[address] [address] 01/26/2025 VON FREDDY External hemorrhoid K64.4 ; Essential (primary) hypertension I10 and Internal hemorrhoid K64.[address] 06/27/2025 VON FREDDY Essential (primary) hypertension I10 ; External hemorrhoid K64.4 ; Chronic fatigue R53.82 ; Erectile disorder N52.9 ; Bradycardia R00.1 and Encounter for examination of blood pressure without abnormal findings Z01.[address] [address] 07/02/2025 VON FREDDY Essential (primary) hypertension I10 ; External hemorrhoid K64.4 ; Chronic fatigue R53.82 ; Erectile disorder N52.9 ; Bradycardia R00.1 and Encounter for examination of blood pressure without abnormal findings Z01.30 [facility] [address] [place] [address] 07/18/2025 Bekah Svrcek Acute sinusitis, unspecified J01.90 and Hypertension, unspecified type I10 [facility] [address] [place] [address] 08/12/20[address]ER [facility] [address] [place] [address] 11/02/2024 TALAL COKER Essential (primary) hypertension I10 and Hypothyroidism, unspecified type E03.9 [facility] [address] [place] [address] 12/27/2024 VON FREDDY [facility] [address] [place] [address] 11/01/2024 TALAL COKER [facility] [address] [place] [address] 01/12/2025 VON FREDDY [facility] [address] [place] [address] 02/01/2025 VON FREDDY [facility] [address] [place] [address] 03/15/2025 VON FREDDY [facility] [address] [place] [address] 03/15/2025 VON FREDDY [facility] [address] [place] 04/14/2025 VON FREDDY [facility] [address] [place] 04/15/2025 VON FREDDY [facility] [address] [place] [address] 05/18/2025 VON FREDDY [facility] [address] [place] [address] 06/21/2025 VON FREDDY Encounter for genera l adult medical examination without abnormal findings Z00.00 ; Hyperlipidemia, unspecified E78.5 and Vitamin D deficiency E55.9 [facility] [address] [place], [place] 07/18/2025 VON FREDDY Assessments Encounter Date Diagnosis (ICD [...] Dictation was accomplished with the use of [employer] voice recognition software, prone to medical misidentifications [...] Dictation was accomplished with the use of [employer] voice recognition software, prone to medical misidentifications [...] Dictation was accomplished with the use of [employer] voice recognition software, prone to medical misidentifications [...] Dictation was accomplished with the use of [employer] voice recognition software, prone to medical misidentifications [...] log exercise and discussed fitness Apps like [employer] which can help keep log off calories [...] Dictation was accomplished with the use of [employer] voice recognition software, which is prone to [...] log exercise and discussed fitness Apps like [employer] which can help keep log off calories [...] Dictation was accomplished with the use of [employer] voice recognition software, which is prone to [...] denies any pain upon rectal exam today. 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 This are unintentional and the practitioner does try to identify and correct these, but some could still be present. Please do not hesitate to contact practitioner for clarification. 06/21/2025 Encounter for general adult medical examination without abnormal findings (ICD-10 - Z00.00) 06/27/2025 Essential (primary) hypertension (ICD-10 - I10) Erick is a pleasant 60-year-old male who presents to the office today for a f/u. #Bilateral ankle swelling: Overall subsided.. There is no apparent bilateral ankle edema appreciated on exam today. Will continue to monitor this. May or may not be due to weather changes, heat, shoes, tight socks... #Fatigue: At this time discontinuing metoprolol due to patient's constant fatigue. I feel as though this is appropriate as patient's heart rate noted to be in office at 50 bpm. Patient did have an EKG conducted in office today on 06/27/2025 that demonstrated sinus bradycardia with intermittent PAC. Will be having patient return to office on July 02 to reevaluate his heart rate, fatigue. Rebound tachycardia is expected.... Fatigue also may be due to absent thyroid, will be obtaining thyroid labs for further evaluation to ensure this is not a thyroid hormonal abnormality #Hypertension: Patient currently on amlodipine 10 mg tablets, irbesartan 300 mg tablets, officially discontinuing metoprolol 25 mg tablets. Consider tapering patient down to amlodipine 5 mg tablets depending on blood pressure control... #Thyroidectomy: Obtaining TSH, T3-T4 for further monitoring. #GERD: Utilizing omeprazole 20 mg capsules #Hypothyroidism: Continue levothyroxine 88 mcg #Erectile dysfunction: Utilizing sildenafil 100 mg as needed #Hyperlipidemia: Continue atorvastatin calcium 20 mg tablets #External hemorrhoids: General surgery was consulted, stated the hemorrhoids resolved All questions have been answered to patient's satisfaction. Patient verbalized understanding of diagnosis and treatments explained. Advised to call sooner prior to next visit it any questions/concerns arise. Case discussed with Regina GRESHAM who reviewed the assessment and plan. Chart, medications, labs, vital signs reviewed. Dictation was accomplished with the use of [employer] voice recognition software, which is prone to medical misidentifications and grammatical errors. This are unintentional and the practitioner does try to identify and correct these, but some could still be present. Please do not hesitate to contact practitioner for clarification. 06/27/2025 External hemorrhoid (ICD-10 - K64.4) Erick is a pleasant 60-year-old male who presents to the office today for a f/u. #Bilateral ankle swelling: Overall subsided.. There is no apparent bilateral ankle edema appreciated on exam today. Will continue to monitor this. May or may not be due to weather changes, heat, shoes, tight socks... #Fatigue: At this time discontinuing metoprolol due to patient's constant fatigue. I feel as though this is appropriate as patient's heart rate noted to be in office at 50 bpm. Patient did have an EKG conducted in office today on 06/27/2025 that demonstrated sinus bradycardia with intermittent PAC. Will be having patient return to office on July 02 to reevaluate his heart rate, fatigue. Rebound tachycardia is expected.... Fatigue also may be due to absent thyroid, will be obtaining thyroid labs for further evaluation to ensure this is not a thyroid hormonal abnormality #Hypertension: Patient currently on amlodipine 10 mg tablets, irbesartan 300 mg tablets, officially discontinuing metoprolol 25 mg tablets. Consider tapering patient down to amlodipine 5 mg tablets depending on blood pressure control... #Thyroidectomy: Obtaining TSH, T3-T4 for further monitoring. #GERD: Utilizing omeprazole 20 mg capsules #Hypothyroidism: Continue levothyroxine 88 mcg #Erectile dysfunction: Utilizing sildenafil 100 mg as needed #Hyperlipidemia: Continue atorvastatin calcium 20 mg tablets #External hemorrhoids: General surgery was consulted, stated the hemorrhoids resolved All questions have been answered to patient's satisfaction. Patient verbalized understanding of diagnosis and treatments explained. Advised to call sooner prior to next visit it any questions/concerns arise. Case discussed with Regina GRESHAM who reviewed the assessment and plan. Chart, medications, labs, vital signs reviewed. Dictation was accomplished with the use of [employer] voice recognition software, which is prone to medical misidentifications and grammatical errors. This are unintentional and the practitioner does try to identify and correct these, but some could still be present. Please do not hesitate to contact practitioner for clarification. 07/02/2025 Essential (primary) hypertension (ICD-10 - I10) Erick is a pleasant 60-year-old male who presents to the office today for a f/u. #Bilateral ankle swelling: Overall subsided.. There is no apparent bilateral ankle edema appreciated on exam today. Will continue to monitor this. May or may not be due to weather changes, heat, shoes, tight socks... #Fatigue: Patient did have an EKG conducted in office on 06/27/2025 that demonstrated sinus bradycardia with intermittent PAC. Continue to discontinue metoprolol 25 mg at this time. This was most likely contributing towards patient's fatigue... Fatigue also may be due to absent thyroid, will be obtaining thyroid labs for further evaluation to ensure this is not a thyroid hormonal abnormality #Hypertension: Patient currently on amlodipine 10 mg tablets, irbesartan 300 mg tablets, officially discontinuing metoprolol 25 mg tablets. #Thyroidectomy: Obtaining TSH, T3-T4 for further monitoring. #GERD: Utilizing omeprazole 20 mg capsules #Hypothyroidism: Continue levothyroxine 88 mcg #Erectile dysfunction: Utilizing sildenafil 100 mg as needed #Hyperlipidemia: Continue atorvastatin calcium 20 mg tablets #External hemorrhoids: General surgery was consulted, stated the hemorrhoids resolved All questions have been answered to patient's satisfaction. Patient verbalized understanding of diagnosis and treatments explained. Advised to call sooner prior to next visit it any questions/concerns arise. Case discussed with Regina GRESHAM who reviewed the assessment and plan. Chart, medications, labs, vital signs reviewed. Dictation was accomplished with the use of [employer] voice recognition software, which is prone to medical misidentifications and grammatical errors. This are unintentional and the practitioner does try to identify and correct these, but some could still be present. Please do not hesitate to contact practitioner for clarification. 07/18/2025 Acute sinusitis, unspecified (ICD-10 - J01.90) #Acute sinusitis. Persistent sinus pain, pressure congestion and postnasal drainage x 2-1/2 weeks. No improvement with symptomatic management. Will treat with antibiotics. Has tolerated azithromycin well in the past. Reviewed risk benefits adverse effects of medication. Encouraged nasal saline spray and continued antihistamine daily. Follow-up if no improvement in 2 weeks sooner with any new or worsening symptoms. #Hypertension. Well-controlled on current regimen. Case discussed with collaborating physician Lito Coker who reviewed the assessment and plan. Chart, medications, labs, vital signs reviewed. Dictation was accomplished with the use of [employer] voice recognition software, prone to medical misidentifications and grammatical errors. This is unintentional and the practitioner does try to identify and correct these, but some could still be present. Please do not hesitate to contact practitioner for clarification. All questions answered to patients satisfaction. Patient verbalized understanding of diagnosis and treatments explained. To call sooner prior to next visit it any questions/concerns arise. 07/18/2025 Hypertension, unspecified type (ICD-10 - I10) #Acute sinusitis. Persistent sinus pain, pressure congestion and postnasal drainage x 2-1/2 weeks. No improvement with symptomatic management. Will treat with antibiotics. Has tolerated azithromycin well in the past. Reviewed risk benefits adverse effects of medication. Encouraged nasal saline spray and continued antihistamine daily. Follow-up if no improvement in 2 weeks sooner with any new or worsening symptoms. #Hypertension. Well-controlled on current regimen. Case discussed with collaborating physician Lito Coker who reviewed the assessment and plan. Chart, medications, labs, vital signs reviewed. Dictation was accomplished with the use of [employer] voice recognition software, prone to medical misidentifications and grammatical errors. This is unintentional and the practitioner does try to identify and correct these, but some could still be present. Please do not hesitate to contact practitioner for clarification. All questions answered to patients satisfaction. Patient verbalized understanding of diagnosis and treatments explained. To call sooner prior to next visit it any questions/concerns arise. 07/02/2025 External hemorrhoid (ICD-10 - K64.4) Erick is a pleasant 60-year-old male who presents to the office today for a f/u. #Bilateral ankle swelling: Overall subsided.. There is no apparent bilateral ankle edema appreciated on exam today. Will continue to monitor this. May or may not be due to weather changes, heat, shoes, tight socks... #Fatigue: Patient did have an EKG conducted in office on 06/27/2025 that demonstrated sinus bradycardia with intermittent PAC. Continue to discontinue metoprolol 25 mg at this time. This was most likely contributing towards patient's fatigue... Fatigue also may be due to absent thyroid, will be obtaining thyroid labs for further evaluation to ensure this is not a thyroid hormonal abnormality #Hypertension: Patient currently on amlodipine 10 mg tablets, irbesartan 300 mg tablets, officially discontinuing metoprolol 25 mg tablets. #Thyroidectomy: Obtaining TSH, T3-T4 for further monitoring. #GERD: Utilizing omeprazole 20 mg capsules #Hypothyroidism: Continue levothyroxine 88 mcg #Erectile dysfunction: Utilizing sildenafil 100 mg as needed #Hyperlipidemia: Continue atorvastatin calcium 20 mg tablets #External hemorrhoids: General surgery was consulted, stated the hemorrhoids resolved All questions have been answered to patient's satisfaction. Patient verbalized understanding of diagnosis and treatments explained. Advised to call sooner prior to next visit it any questions/concerns arise. Case discussed with Regina GRESHAM who reviewed the assessment and plan. Chart, medications, labs, vital signs reviewed. Dictation was accomplished with the use of [employer] voice recognition software, which is prone to medical misidentifications and grammatical errors. This are unintentional and the practitioner does try to identify and correct these, but some could still be present. Please do not hesitate to contact practitioner for clarification. 06/27/2025 Chronic fatigue (ICD-10 - R53.82) Erick is a pleasant 60-year-old male who presents to the office today for a f/u. #Bilateral ankle swelling: Overall subsided.. There is no apparent bilateral ankle edema appreciated on exam today. Will continue to monitor this. May or may not be due to weather changes, heat, shoes, tight socks... #Fatigue: At this time discontinuing metoprolol due to patient's constant fatigue. I feel as though this is appropriate as patient's heart rate noted to be in office at 50 bpm. Patient did have an EKG conducted in office today on 06/27/2025 that demonstrated sinus bradycardia with intermittent PAC. Will be having patient return to office on July 02 to reevaluate his heart rate, fatigue. Rebound tachycardia is expected.... Fatigue also may be due to absent thyroid, will be obtaining thyroid labs for further evaluation to ensure this is not a thyroid hormonal abnormality #Hypertension: Patient currently on amlodipine 10 mg tablets, irbesartan 300 mg tablets, officially discontinuing metoprolol 25 mg tablets. Consider tapering patient down to amlodipine 5 mg tablets depending on blood pressure control... #Thyroidectomy: Obtaining TSH, T3-T4 for further monitoring. #GERD: Utilizing omeprazole 20 mg capsules #Hypothyroidism: Continue levothyroxine 88 mcg #Erectile dysfunction: Utilizing sildenafil 100 mg as needed #Hyperlipidemia: Continue atorvastatin calcium 20 mg tablets #External hemorrhoids: General surgery was consulted, stated the hemorrhoids resolved All questions have been answered to patient's satisfaction. Patient verbalized understanding of diagnosis and treatments explained. Advised to call sooner prior to next visit it any questions/concerns arise. Case discussed with Regina GRESHAM who reviewed the assessment and plan. Chart, medications, labs, vital signs reviewed. Dictation was accomplished with the use of [employer] voice recognition software, which is prone to [...] denies any pain upon rectal exam today. 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 [...] Dictation was accomplished with the use of [employer] voice recognition software, which is prone to [...] log exercise and discussed fitness Apps like [employer] which can help keep log off calories [...] Dictation was accomplished with the use of [employer] voice recognition software, which is prone to [...] Dictation was accomplished with the use of [employer] voice recognition software, prone to medical misidentifications [...] Dictation was accomplished with the use of [employer] voice recognition software, prone to medical misidentifications [...] log exercise and discussed fitness Apps like [employer] which can help keep log off calories [...] Dictation was accomplished with the use of [employer] voice recognition software, which is prone to medical misidentifications and grammatical errors. This are unintentional and the practitioner does try to identify and correct these, but some could still be present. Please do not hesitate to contact practitioner for clarification. 06/21/2025 Vitamin D deficiency (ICD-10 - E55.9) 06/27/2025 Erectile disorder (ICD-10 - N52.9) Erick is a pleasant 60-year-old male who presents to the office today for a f/u. #Bilateral ankle swelling: Overall subsided.. There is no apparent bilateral ankle edema appreciated on exam today. Will continue to monitor this. May or may not be due to weather changes, heat, shoes, tight socks... #Fatigue: At this time discontinuing metoprolol due to patient's constant fatigue. I feel as though this is appropriate as patient's heart rate noted to be in office at 50 bpm. Patient did have an EKG conducted in office today on 06/27/2025 that demonstrated sinus bradycardia with intermittent PAC. Will be having patient return to office on July 02 to reevaluate his heart rate, fatigue. Rebound tachycardia is expected.... Fatigue also may be due to absent thyroid, will be obtaining thyroid labs for further evaluation to ensure this is not a thyroid hormonal abnormality #Hypertension: Patient currently on amlodipine 10 mg tablets, irbesartan 300 mg tablets, officially discontinuing metoprolol 25 mg tablets. Consider tapering patient down to amlodipine 5 mg tablets depending on blood pressure control... #Thyroidectomy: Obtaining TSH, T3-T4 for further monitoring. #GERD: Utilizing omeprazole 20 mg capsules #Hypothyroidism: Continue levothyroxine 88 mcg #Erectile dysfunction: Utilizing sildenafil 100 mg as needed #Hyperlipidemia: Continue atorvastatin calcium 20 mg tablets #External hemorrhoids: General surgery was consulted, stated the hemorrhoids resolved All questions have been answered to patient's satisfaction. Patient verbalized understanding of diagnosis and treatments explained. Advised to call sooner prior to next visit it any questions/concerns arise. Case discussed with Regina GRESHAM who reviewed the assessment and plan. Chart, medications, labs, vital signs reviewed. Dictation was accomplished with the use of [employer] voice recognition software, which is prone to medical misidentifications and grammatical errors. This are unintentional and the practitioner does try to identify and correct these, but some could still be present. Please do not hesitate to contact practitioner for clarification. 07/02/2025 Chronic fatigue (ICD-10 - R53.82) Erick is a pleasant 60-year-old male who presents to the office today for a f/u. #Bilateral ankle swelling: Overall subsided.. There is no apparent bilateral ankle edema appreciated on exam today. Will continue to monitor this. May or may not be due to weather changes, heat, shoes, tight socks... #Fatigue: Patient did have an EKG conducted in office on 06/27/2025 that demonstrated sinus bradycardia with intermittent PAC. Continue to discontinue metoprolol 25 mg at this time. This was most likely contributing towards patient's fatigue... Fatigue also may be due to absent thyroid, will be obtaining thyroid labs for further evaluation to ensure this is not a thyroid hormonal abnormality #Hypertension: Patient currently on amlodipine 10 mg tablets, irbesartan 300 mg tablets, officially discontinuing metoprolol 25 mg tablets. #Thyroidectomy: Obtaining TSH, T3-T4 for further monitoring. #GERD: Utilizing omeprazole 20 mg capsules #Hypothyroidism: Continue levothyroxine 88 mcg #Erectile dysfunction: Utilizing sildenafil 100 mg as needed #Hyperlipidemia: Continue atorvastatin calcium 20 mg tablets #External hemorrhoids: General surgery was consulted, stated the hemorrhoids resolved All questions have been answered to patient's satisfaction. Patient verbalized understanding of diagnosis and treatments explained. Advised to call sooner prior to next visit it any questions/concerns arise. Case discussed with Regina GRESHAM who reviewed the assessment and plan. Chart, medications, labs, vital signs reviewed. Dictation was accomplished with the use of [employer] voice recognition software, which is prone to medical misidentifications and grammatical errors. This are unintentional and the practitioner does try to identify and correct these, but some could still be present. Please do not hesitate to contact practitioner for clarification. 06/27/2025 Bradycardia (ICD-10 - R00.1) Erick is a pleasant 60-year-old male who presents to the office today for a f/u. #Bilateral ankle swelling: Overall subsided.. There is no apparent bilateral ankle edema appreciated on exam today. Will continue to monitor this. May or may not be due to weather changes, heat, shoes, tight socks... #Fatigue: At this time discontinuing metoprolol due to patient's constant fatigue. I feel as though this is appropriate as patient's heart rate noted to be in office at 50 bpm. Patient did have an EKG conducted in office today on 06/27/2025 that demonstrated sinus bradycardia with intermittent PAC. Will be having patient return to office on July 02 to reevaluate his heart rate, fatigue. Rebound tachycardia is expected.... Fatigue also may be due to absent thyroid, will be obtaining thyroid labs for further evaluation to ensure this is not a thyroid hormonal abnormality #Hypertension: Patient currently on amlodipine 10 mg tablets, irbesartan 300 mg tablets, officially discontinuing metoprolol 25 mg tablets. Consider tapering patient down to amlodipine 5 mg tablets depending on blood pressure control... #Thyroidectomy: Obtaining TSH, T3-T4 for further monitoring. #GERD: Utilizing omeprazole 20 mg capsules #Hypothyroidism: Continue levothyroxine 88 mcg #Erectile dysfunction: Utilizing sildenafil 100 mg as needed #Hyperlipidemia: Continue atorvastatin calcium 20 mg tablets #External hemorrhoids: General surgery was consulted, stated the hemorrhoids resolved All questions have been answered to patient's satisfaction. Patient verbalized understanding of diagnosis and treatments explained. Advised to call sooner prior to next visit it any questions/concerns arise. Case discussed with Regina GRESHAM who reviewed the assessment and plan. Chart, medications, labs, vital signs reviewed. Dictation was accomplished with the use of [employer] voice recognition software, which is prone to medical misidentifications and grammatical errors. This are unintentional and the practitioner does try to identify and correct these, but some could still be present. Please do not hesitate to contact practitioner for clarification. 07/02/2025 Erectile disorder (ICD-10 - N52.9) Erick is a pleasant 60-year-old male who presents to the office today for a f/u. #Bilateral ankle swelling: Overall subsided.. There is no apparent bilateral ankle edema appreciated on exam today. Will continue to monitor this. May or may not be due to weather changes, heat, shoes, tight socks... #Fatigue: Patient did have an EKG conducted in office on 06/27/2025 that demonstrated sinus bradycardia with intermittent PAC. Continue to discontinue metoprolol 25 mg at this time. This was most likely contributing towards patient's fatigue... Fatigue also may be due to absent thyroid, will be obtaining thyroid labs for further evaluation to ensure this is not a thyroid hormonal abnormality #Hypertension: Patient currently on amlodipine 10 mg tablets, irbesartan 300 mg tablets, officially discontinuing metoprolol 25 mg tablets. #Thyroidectomy: Obtaining TSH, T3-T4 for further monitoring. #GERD: Utilizing omeprazole 20 mg capsules #Hypothyroidism: Continue levothyroxine 88 mcg #Erectile dysfunction: Utilizing sildenafil 100 mg as needed #Hyperlipidemia: Continue atorvastatin calcium 20 mg tablets #External hemorrhoids: General surgery was consulted, stated the hemorrhoids resolved All questions have been answered to patient's satisfaction. Patient verbalized understanding of diagnosis and treatments explained. Advised to call sooner prior to next visit it any questions/concerns arise. Case discussed with Regina GRESHAM who reviewed the assessment and plan. Chart, medications, labs, vital signs reviewed. Dictation was accomplished with the use of [employer] voice recognition software, which is prone to [...] log exercise and discussed fitness Apps like [employer] which can help keep log off calories [...] any questions/concerns arise. Case discussed with Regina GRESHMA who reviewed the assessment and plan. Chart, medications, labs, vital signs reviewed. Dictation was accomplished with the use of [employer] voice recognition software, which is prone to [...] log exercise and discussed fitness Apps like [employer] which can help keep log off calories [...] Dictation was accomplished with the use of [employer] voice recognition software, which is prone to medical misidentifications and grammatical errors. This are unintentional and the practitioner does try to identify and correct these, but some could still be present. Please do not hesitate to contact practitioner for clarification. 06/27/2025 Encounter for examination of blood pressure without abnormal findings (ICD-10 - Z01.30) Erick is a pleasant 60-year-old male who presents to the office today for a f/u. #Bilateral ankle swelling: Overall subsided.. There is no apparent bilateral ankle edema appreciated on exam today. Will continue to monitor this. May or may not be due to weather changes, heat, shoes, tight socks... #Fatigue: At this time discontinuing metoprolol due to patient's constant fatigue. I feel as though this is appropriate as patient's heart rate noted to be in office at 50 bpm. Patient did have an EKG conducted in office today on 06/27/2025 that demonstrated sinus bradycardia with intermittent PAC. Will be having patient return to office on July 02 to reevaluate his heart rate, fatigue. Rebound tachycardia is expected.... Fatigue also may be due to absent thyroid, will be obtaining thyroid labs for further evaluation to ensure this is not a thyroid hormonal abnormality #Hypertension: Patient currently on amlodipine 10 mg tablets, irbesartan 300 mg tablets, officially discontinuing metoprolol 25 mg tablets. Consider tapering patient down to amlodipine 5 mg tablets depending on blood pressure control... #Thyroidectomy: Obtaining TSH, T3-T4 for further monitoring. #GERD: Utilizing omeprazole 20 mg capsules #Hypothyroidism: Continue levothyroxine 88 mcg #Erectile dysfunction: Utilizing sildenafil 100 mg as needed #Hyperlipidemia: Continue atorvastatin calcium 20 mg tablets #External hemorrhoids: General surgery was consulted, stated the hemorrhoids resolved All questions have been answered to patient's satisfaction. Patient verbalized understanding of diagnosis and treatments explained. Advised to call sooner prior to next visit it any questions/concerns arise. Case discussed with Regina GRESHAM who reviewed the assessment and plan. Chart, medications, labs, vital signs reviewed. Dictation was accomplished with the use of [employer] voice recognition software, which is prone to medical misidentifications and grammatical errors. This are unintentional and the practitioner does try to identify and correct these, but some could still be present. Please do not hesitate to contact practitioner for clarification. 07/02/2025 Bradycardia (ICD-10 - R00.1) Erick is a pleasant 60-year-old male who presents to the office today for a f/u. #Bilateral ankle swelling: Overall subsided.. There is no apparent bilateral ankle edema appreciated on exam today. Will continue to monitor this. May or may not be due to weather changes, heat, shoes, tight socks... #Fatigue: Patient did have an EKG conducted in office on 06/27/2025 that demonstrated sinus bradycardia with intermittent PAC. Continue to discontinue metoprolol 25 mg at this time. This was most likely contributing towards patient's fatigue... Fatigue also may be due to absent thyroid, will be obtaining thyroid labs for further evaluation to ensure this is not a thyroid hormonal abnormality #Hypertension: Patient currently on amlodipine 10 mg tablets, irbesartan 300 mg tablets, officially discontinuing metoprolol 25 mg tablets. #Thyroidectomy: Obtaining TSH, T3-T4 for further monitoring. #GERD: Utilizing omeprazole 20 mg capsules #Hypothyroidism: Continue levothyroxine 88 mcg #Erectile dysfunction: Utilizing sildenafil 100 mg as needed #Hyperlipidemia: Continue atorvastatin calcium 20 mg tablets #External hemorrhoids: General surgery was consulted, stated the hemorrhoids resolved All questions have been answered to patient's satisfaction. Patient verbalized understanding of diagnosis and treatments explained. Advised to call sooner prior to next visit it any questions/concerns arise. Case discussed with Regina GRESHAM who reviewed the assessment and plan. Chart, medications, labs, vital signs reviewed. Dictation was accomplished with the use of [employer] voice recognition software, which is prone to medical misidentifications and grammatical errors. This are unintentional and the practitioner does try to identify and correct these, but some could still be present. Please do not hesitate to contact practitioner for clarification. 07/02/2025 Encounter for examination of blood pressure without abnormal findings (ICD-10 - Z01.30) Erick is a pleasant 60-year-old male who presents to the office today for a f/u. #Bilateral ankle swelling: Overall subsided.. There is no apparent bilateral ankle edema appreciated on exam today. Will continue to monitor this. May or may not be due to weather changes, heat, shoes, tight socks... #Fatigue: Patient did have an EKG conducted in office on 06/27/2025 that demonstrated sinus bradycardia with intermittent PAC. Continue to discontinue metoprolol 25 mg at this time. This was most likely contributing towards patient's fatigue... Fatigue also may be due to absent thyroid, will be obtaining thyroid labs for further evaluation to ensure this is not a thyroid hormonal abnormality #Hypertension: Patient currently on amlodipine 10 mg tablets, irbesartan 300 mg tablets, officially discontinuing metoprolol 25 mg tablets. #Thyroidectomy: Obtaining TSH, T3-T4 for further monitoring. #GERD: Utilizing omeprazole 20 mg capsules #Hypothyroidism: Continue levothyroxine 88 mcg #Erectile dysfunction: Utilizing sildenafil 100 mg as needed #Hyperlipidemia: Continue atorvastatin calcium 20 mg tablets #External hemorrhoids: General surgery was consulted, stated the hemorrhoids resolved All questions have been answered to patient's satisfaction. Patient verbalized understanding of diagnosis and treatments explained. Advised to call sooner prior to next visit it any questions/concerns arise. Case discussed with Regina GRESHAM who reviewed the assessment and plan. Chart, medications, labs, vital signs reviewed. Dictation was accomplished with the use of [employer] voice recognition software, which is prone to [...] log exercise and discussed fitness Apps like [employer] which can help keep log off calories [...] Dictation was accomplished with the use of [employer] voice recognition software, which is prone to [...] COMPREHENSIVE METABOLIC PANEL 04/19/2024 COMPREHENSIVE METABOLIC PANEL 06/27/2025 COMPREHENSIVE METABOLIC PANEL 11/02/2024 COMPREHENSIVE METABOLIC PANEL 06/23/2023 COMPREHENSIVE METABOLIC PANEL 12/23/2022 COMPREHENSIVE METABOLIC PANEL 06/20/2022 CBC (INCLUDES DIFF/PLT) 06/20/2022 CBC (INCLUDES DIFF/PLT) 12/23/2022 CBC (INCLUDES DIFF/PLT) 06/23/2023 CBC (INCLUDES DIFF/PLT) 11/02/2024 CBC (INCLUDES DIFF/PLT) 06/27/2025 CBC (INCLUDES DIFF/PLT) 04/19/2024 URINALYSIS, COMPLETE 04/19/2024 URINALYSIS, COMPLETE 12/23/2022 URINALYSIS, COMPLETE 06/23/2023 URINALYSIS, COMPLETE 06/20/2022 VITAMIN B12 12/27/2024 PSA (FREE AND TOTAL) 12/27/2024 PSA, TOTAL 06/23/2023 T4, FREE 06/20/2022 T4, FREE 12/24/2023 TSH 12/24/2023 TSH 06/23/2023 TSH 06/20/2022 TSH 06/19/2023 TSH W/REFLEX TO FT4 04/19/2024 T3, FREE 12/24/2023 VITAMIN D,25-OH,TOTAL,IA 12/27/2024 TSH+T4F+T3Free 06/27/2025 TSH+T4F+T3Free 11/02/2024 Next Appt Details Provider Name:BEATRIZ COKER, 08/02/2025 11:00:00 AM, [address], [place], [id number], Provider Name:VON FREDDY, 10:15:00 AM, [address], [place], [id number], Insurance Providers Payer Name Payer Address Payer Phone Subscriber Number Group Number Insured Name Patient Relationship to Insured Coverage Start Date Coverage End Date [facility] [address] [place] [address] [id number] Cayden Olguin Self - patient is the insured Medical (General) History Medical History History ICD Code Essential (primary) hypertension I10 GERD without esophagitis K21.9 Goiter E04.9 History of melanoma Z85.820 Hyperlipidemia E78.5 Surgical History Surgery Date(Month/Year) septoplasty hernia repair parathyroid surgery Thyroid surgery 2021 hernia repair, [facility] Lee [facility] Feb Hospitalization History Reason Date(Month/Year) Colonoscopy 08/2024
--- OUTSIDE RECORDS SUMMARY | 2025-07-27 14:42 | XMS_ITS | Clinical Summary ---
Author Organization [facility] Address [address] [place] [address] Care Team Providers Care Clam Treader Name Role Phone Ximena Coker MD Primary Care Provider [phone] Social History Tobacco Use Types Packs/Day Years Used Date Smoking Tobacco: Never Assessed Sex and Gender Information Value Date Recorded Sex Assigned at Not on file Legal Sex Male 2:55 AM EST Gender Identity Not on file Sexual Orientation Not on file Plan of Treatment Health Maintenance Due Date Last Done Comments Colorectal Cancer Screening: Colonoscopy 1965 DTaP,Tdap,and Td Vaccines (1 - Tdap) 1982 Pneumococcal Vaccine: 50+ Ye ars (1 of 1 - PCV) 2013 Zoster Vaccines (1 of 2) 2013 Cholesterol Screening (Lipid Panel) 04/20/2024 HIV Screening 04/20/2024 Hepatitis C Screening 04/20/2024 Social Influencers of Health Screening 04/20/2024 Depression Screening 09/29/2024 COVID-19 Vaccine (1 - 2023-2 5 season) 2025 Influenza Vaccine [...] age to complete this topic Care Teams Clam Treader Relationship Specialty Start Date End Date Ximena Coker MD PCP - General 12/26/23
== END 2025-07-27 11:29 | disposition home or self-care (01) ==
LOC: HO.HMGAL 11:27
PROVIDERS: PCP Internal Medicine; Visit Provider Registered Nurse Emergency
DX: J30.89 Other allergic rhinitis (principal)
CPT/HCPCS: 95117; 95165

== ENCOUNTER 2025-08-17 09:17 | Outpatient (AMB) | payer OTHER, SELFPAY ==
--- OUTSIDE RECORDS SUMMARY | 2025-08-02 06:00 | XMS_ITS ---
Author Organization [facility] Address [address] [place] [address] Care Team Providers Care Machinist Wood Name Role Phone VON HAYES Unavailable [phone] BEATRIZ COKER Unavailable [phone] REASON FOR VISIT pt was here for nv for BP check Medications Medication SIG (Take, Route, Frequency, Duration) Notes Start Date End Date Status amLODIPine Besylate 10 MG Tablet TAKE 1 TABLET BY MOUTH EVERY DAY; Duration: 90 Active Levothyroxine Sodium 88 MCG Tablet TAKE 1 TABLET BY MOUTH EVERY DAY IN THE MORNING ON EMPTY STOMACH FOR 90 DAYS; Duration: 90 Active Vitamin D 50 MCG (1999 UT) Capsule 1 capsule Orally Once a day Active Irbesartan 300 MG Tablet TAKE 1 TABLET B Y MOUTH EVERY DAY FOR 90 DAYS; Duration: 90 Active Atorvastatin Calcium 20 MG Tablet 1 tablet Orally Once a day; Duration: 90 days Active Omeprazole 20 MG Capsule Delayed Release TAKE 1 CAPSULE BY MOUTH EVERY DAY 1/2 TO 1 HOUR BEFORE MORNING MEAL; Duration: 90 days NEEDED Active Sildenafil Citrate 100 MG Tablet 1 tablet as needed Orally Once a day; Duration: 7 days 10/31/2023 Active Azithromycin 250 MG Tablet 2 tablets onc e a day for 1 day, 1 tablet once a day for 4 days Orally daily; Duration: 5 days 07/18/2025 Active Vital Signs Blood pressure systolic 146 mm Hg 08/02/20 25 Blood pressure diastolic 70 mm Hg 025 Heart Rate 60 /min 08/02/2025 Height 71 in 08/02/2025 Oximetry 97 % 08/02/2025 Encounters Encounter Location Date Provider Diagnosis [facility] [address] [place] [address] 08/02/2025 BEATRIZ COKER Plan Of Treatment Next Appt Details Provider Name:VON HAYES, 01:45:00 PM, [address], [place], [address], Provider Name:VON HAYES, 10:15:00 AM, [address], [place], [address], Progress Notes * Cayden OLGUINDOB:1965 (60 yo M)Acc No.[id number]:08/02/2025 Progress Note Patient: Cayden Resendez Provider: Lito Coker MD :1965 A ge:60 Y S ex:Male Date:08/02/2025 Address:[address] [place], [place] [id number] Subjective: * Chief Complaints: * p t was here for de for BP check * Medications: T akingIrbesartan 300 MG Tablet TAKE 1 TABLET BY MOUTH EVERY DAY FOR 90 DAYS Atorvastatin Calcium 20 MG Tablet 1 tablet Orally Once a day amLODIPine Besylate 10 MG Tablet TAKE 1 TABLET BY MOUTH EVERY DAY Levothyroxine Sodium 88 MCG Tablet TAKE 1 TABLET BY MOUTH EVERY DAY IN THE MORNING ON EMPTY STOMACH FOR 90 DAYS Vitamin D 50 MCG (1999) Capsule 1 capsule Orally Once a day Sildenafil Citrate 100 MG Tablet 1 tablet as needed Orally Once a day Omeprazole 20 MG Capsule Delayed Release TAKE 1 CAPSULE BY MOUTH EVERY DAY 1/2 TO 1 HOUR BEFORE MORNING MEAL , Notes to Pharmacist: NEEDEDAzithromycin 250 MG Tablet 2 tablets once a day for 1 day, 1 tablet once a day for 4 days Orally daily Taking Irbesartan 300 MG Tablet TAKE 1 TABLET BY MOUTH EVERY DAY FOR 90 DAYS Taking Atorvastatin Calcium 20 MG Tablet 1 tablet Orally Once a day Taking amLODIPine Besylate 10 MG Tablet TAKE 1 TABLET BY MOUTH EVERY DAY Taking Levothyroxine Sodium 88 MCG Tablet TAKE 1 TABLET BY MOUTH EVERY DAY IN THE MORNING ON EMPTY STOMACH FOR 90 DAYS Taking Vitamin D 50 MCG (2000 UT) Capsule 1 capsule Orally Once a day Taking Sildenafil Citrate 100 MG Tablet 1 tablet as needed Orally Once a day Taking Omeprazole 20 MG Capsule Delayed Release TAKE 1 CAPSULE BY MOUTH EVERY DAY 1/2 TO 1 HOUR BEFORE MORNING MEAL , Notes to Pharmacist: NEEDEDTaking Azithromycin 250 MG Tablet 2 tablets once a day for 1 day, 1 tablet once a day for 4 days Orally daily Objective: * Vitals: H R:60/min, BP:146/70mm Hg, Ht: 71 in, Oxygen sat %:97%. Care Plan Details* * Electronic signature of FRANKIE COKER MD on 08/17/2025 at 05:11 PM EST Sign off status: Pending * Provider: Lito Coker MD Date: 10/02/2024 Generated for Deborah mclean/Rachel/Pilloitting on: 10/17/2024 05:11 PM EST
--- OUTSIDE RECORDS SUMMARY | 2025-08-17 17:11 | XMS_ITS | Clinical Summary ---
Author Organization [facility] Address [address] [place] [address] Care Team Providers Care Social Science Instructor Name Role Phone Ximena Coker MD Primary Care Provider [phone] Social History Tobacco Use Types Packs/Day Years [...] Depression Screening 09/29/2024 COVID-19 Vaccine (1 - 2024-2 6 season) 2025 Influenza Vaccine (#1) 2025 RSV [...] age to complete this topic Care Teams Social Science Instructor Relationship Specialty Start Date End Date Ximena Coker MD PCP - General 12/26/23
--- OUTSIDE RECORDS SUMMARY | 2025-08-17 17:12 | XMS_ITS | Patient Health Record ---
Author Organization [facility] [address] Address [address] [place] [address] Care Team Providers Care Equipment Installation Professional Name Role Phone VON HAYES Unavailable [phone] COKERBEATRIZ SHELTON Unavailable [phone] ALYSSA KUNAL Unavailable [phone] LuzBekah brown Unavailable [phone] Allergies No Known Allergies Results Component Value Reference Range Flag Notes T4F+T3Free Reviewed date:07/06/2025 07:59:57 AM Interpretation: Performing Lab:[facility], [address] [facility], Phone - [phone], Director - MDJodry Notes/Report: Thyroxine (T-4), Serum 7.5 Reference Range: Adults: 4.2 - 13.0 Free T-3 2.7 Reference Range: >=20y: 2.0 - 4.4 Triiodothyronine (T-3), Serum 95 Reference Range: Adults: 55 - 170 Free Thyroxine 1.18 Reference Range: >=20y: 0.82 - 1.77 Comp. Metabolic Panel (14)-3 [id number] Reviewed date:07/06/2025 11:42:10 AM Interpretation: Performing Lab:[facility], [address] [facility], Phone - [phone], Director - MDJodry Notes/Report: Glucose 75 70-99 mg/dL BUN 17 8-27 mg/dL Creatinine 0.92 0.76-1.27 mg/dL eGFR 94 >59 mL/min/1.73 BUN/Creatinine Ratio 18 10-24 Sodium 140 134-144 mmol/L Potassium 4.3 3.5-5.2 mmol/L Chloride 103 96-106 mmol/L Carbon Dioxide, Total 19 20-29 mmol/L L Calcium 9.3 8.6-10.2 mg/dL Protein, Total 7.5 6.0-8.5 g/dL Albumin 4.4 3.9-4.9 g/dL Globulin, Total 3.1 1.5-4.5 g/dL Bilirubin, Total 0.8 0.0-1.2 mg/dL Alkaline Phosphatase 78 47-123 IU/L AST (SGOT) 19 0-40 IU/L ALT (SGPT) 7 0-44 IU/L Comp. Metabolic Panel (14)-3 [id number] Reviewed date:11/16/2024 11:40:18 AM Interpretation: Performing Lab:[facility], [address] [facility], Phone - [phone], Director - MDJodry Notes/Report: Glucose 118 70-99 mg/dL H BUN 17 8-27 mg/dL Creatinine 0.97 0.76-1.27 [...] (SGPT) 5 0-44 IU/L Triiodothyronine (T3), Free- [id number] Reviewed date:11/05/2024 08:16:15 AM Interpretation: Performing Lab:[facility], [address] [facility], Phone - [phone], Director - MDJodry Notes/Report: Triiodothyronine (T3), Free 2.9 2.0-4.4 pg/mL CBC With Differential/Platel et-[id number] Reviewed date:07/06/2025 07:59:57 AM Interpretation: Performing Lab:[facility], [address] [facility], Phone - [phone], Director - MDJodry Notes/Report: WBC 7.4 3.4-10.8 x10E3/uL RBC 4.65 [...] % Immature Grans (Abs) 0.0 0.0-0.1 x10E3/uL CBC With Differential/Platel et-[id number] Reviewed date:11/05/2024 08:16:15 AM Interpretation: Performing Lab:[facility], [address] [facility] [address], [place], Phone - [phone], Director - AKKimberleyy Notes/Report: WBC 6.3 3.4-10.8 x10E3/uL RBC 4.81 [...] % Immature Grans (Abs) 0.0 0.0-0.1 x10E3/uL TSH-[id number] Reviewed date:11/05/2024 08:16:15 AM Interpretation: Performing Lab:[address], Phone - [phone], Director - MDJodry Notes/Report: TSH 2.180 0.450-4.500 uIU/mL TSH-[id number] Reviewed date:07/06/2025 07:59:57 AM Interpretation: Performing Lab:[address], Phone - [phone], Director - MDJodry Notes/Report: TSH 1.490 0.450-4.500 uIU/mL Thyroxine (T4) Free, Direct- [id number] Reviewed date:11/05/2024 08:16:15 AM Interpretation: Performing Lab:[address], Phone - [phone], Director - MDJodry Notes/Report: T4,Free(Direct) 1.27 0.82-1.77 ng/dL Vitamin [id number] Reviewed date:12/28/2024 09:04:23 AM Interpretation: Performing Lab:[address], Phone - [phone], Director - MDJodry Notes/Report: Vitamin B12 804 653-5581 pg/mL EKG Reviewed date:06/27/2025 10:11:19 AM Interpretation: Performing Lab: Notes/Report: ECGDiastolicBP 78 ECGHr 53 ECGPRInterval 148 ECGPWaveAxis 37 ECGQRSDuration 100 ECGQrsWaveAxis -3 ECGQTcInterval 412 ECGQTInterval 424 ECGSystolicBP 120 ECGTWaveAxis -1 RR_DiastolicBP 0 RR_MaxRRInterval 0 RR_MeanHR 0 RR_MeanRRInterval 0 RR_MinRRInterval 0 RR_NumBeats 0 RR_NumNormalBeats 0 RR_SystolicBP 0 Ambig Abbrev LP Default Reviewed date:12/22/2024 08:39:44 AM Interpretation: Performing Lab:[address], Phone - [phone], Director - Esperanza Notes/Report: Ambig Abbrev LP Default A hand-written panel/profile was received from your office. In accordance with the [facility] Ambiguous Test Code Policy dated March 2003, we have completed your order by using the closest currently or formerly recognized AMA panel. We have assigned Lipid Panel, Test Code #808074 to this request. If this is not the testing you wished to receive on this specimen, please contact the [facility] Client Inquiry/Technical Services Department to clarify the test order. We appreciate your business. TSH Rfx on Abnormal to Free [id number] Reviewed date:12/22/2024 08:39:44 AM Interpretation: Performing Lab:[address], Phone - [phone], Director - AKAngella Notes/Report: TSH 3.230 0.450-4.500 uIU/mL Myah David CMP14 Default A hand-written panel/profile was received from your office. In accordance with the [facility] Ambiguous Test Code Policy dated March 2003, we have completed your order by using the closest currently or formerly recognized AMA panel. We have assigned Comprehensive Metabolic Panel (14), Test Code #316075 to this request. If this is not the testing you wished to receive on this specimen, please contact the [facility] Client Inquiry/Technical Services Department to clarify the test order. We appreciate your business. Comp. Metabolic Panel (14)-3 Reviewed date:12/22/2024 08:42:55 AM Interpretation: Performing Lab:[address], Phone - [phone], Director - Esperanza Notes/Report: Glucose 102 70-99 mg/dL H BUN 15 8-27 mg/dL Creatinine 0.97 0.76-1.27 [...] IU/L ALT (SGPT) 5 0-44 IU/L Lipid Panel-[id number] Reviewed date:12/22/2024 08:39:44 AM Interpretation: Performing Lab:Luis F Perez, [address] [facility], Phone - [phone], Director - MDJodry Notes/Report: Cholesterol, Total 180 100-199 mg/dL Triglycerides 67 0-149 mg/dL HDL Cholesterol 83 >39 mg/dL VLDL Cholesterol Williams 13 5-40 mg/dL LDL Chol Calc (NIH) 84 0-99 mg/dL CBC With Differential/Platel et-[id number] Reviewed date:12/22/2024 08:39:44 AM Interpretation: Performing Lab:Luis F Perez, [address] [place] [address], [place], Phone - [phone], Director - MDJoy Notes/Report: WBC 6.2 3.4-10.8 x10E3/uL RBC 4.70 [...] Immature Grans (Abs) 0.0 0.0-0.1 x10E3/uL Urinalysis, Complete-[id number] Reviewed date:12/22/2024 08:39:44 AM Interpretation: Performing Lab:[facility], [address] [place] [address], [place], Phone - [phone], Director - Esperanza Notes/Report: Specific [place] 1.018 1.005-1.030 pH 5.5 5.0-7.5 Urine-Color Yellow Yellow Appearance Clear Clear WBC Esterase Negative Negative Protein Negative Negative/Trace Glucose Negative Negative Ketones Negative Negative Occult Blood Negative Negative Bilirubin Negative Negative Urobilinogen,Semi-Qn 0.2 0.2-1.0 mg/dL Nitrite, Urine Negative Negative Microscopic Examination M icroscopic follows if indicated. Microscopic Examination See below: M icroscopic was indicated and was performed. WBC None seen 0 - 5 /hpf RBC 0-2 0 - 2 /hpf Epithelial Cells (non renal) None seen 0 - 10 /hpf Casts None seen None seen /lpf Bacteria None seen None seen/Few EKG Reviewed date:11/02/2024 03:07:23 PM Interpretation: Performing Lab: Notes/Report: ECGDiastolicBP 92 ECGDiastolicBP 92 ECGHr 52 ECGHr 48 ECGPRInterval 146 ECGPRInterval 150 ECGPWaveAxis 44 ECGPWaveAxis 48 ECGQRSDuration 94 ECGQRSDuration 94 ECGQrsWaveAxis -19 ECGQrsWaveAxis -20 ECGQTcInterval 420 ECGQTcInterval 423 ECGQTInterval 434 ECGQTInterval 444 ECGSystolicBP 172 ECGSystolicBP 172 ECGTWaveAxis 21 ECGTWaveAxis 17 RR_DiastolicBP 0 RR_DiastolicBP 0 RR_MaxRRInterval 0 RR_MaxRRInterval 0 RR_MeanHR 0 RR_MeanHR 0 RR_MeanRRInterval 0 RR_MeanRRInterval 0 RR_MinRRInterval 0 RR_MinRRInterval 0 RR_NumBeats 0 RR_NumBeats 0 RR_NumNormalBeats 0 RR_NumNormalBeats 0 RR_SystolicBP 0 RR_SystolicBP 0 EKG Reviewed date:11/02/2024 03:07:23 PM Interpretation: Performing Lab: Notes/Report: ECGDiastolicBP 92 ECGDiastolicBP 92 ECGHr 52 ECGHr 48 ECGPRInterval 146 ECGPRInterval 150 ECGPWaveAxis 44 ECGPWaveAxis 48 ECGQRSDuration 94 ECGQRSDuration 94 ECGQrsWaveAxis -19 ECGQrsWaveAxis -20 ECGQTcInterval 420 ECGQTcInterval 423 ECGQTInterval 434 ECGQTInterval 444 ECGSystolicBP 172 ECGSystolicBP 172 ECGTWaveAxis 21 ECGTWaveAxis 17 RR_DiastolicBP 0 RR_DiastolicBP 0 RR_MaxRRInterval 0 RR_MaxRRInterval 0 RR_MeanHR 0 RR_MeanHR 0 RR_MeanRRInterval 0 RR_MeanRRInterval 0 RR_MinRRInterval 0 RR_MinRRInterval 0 RR_NumBeats 0 RR_NumBeats 0 RR_NumNormalBeats 0 RR_NumNormalBeats 0 RR_SystolicBP 0 RR_SystolicBP 0 PSA Total+% Free-[id number] Reviewed date:12/28/2024 09:04:23 AM Interpretation: Performing Lab:[facility] [place], [address] [place] [address], [place], Phone - [phone], Director - Esperanza Notes/Report: Prostate Specific Ag 0.8 0.0-4.0 ng/mL Alison ECLIA methodology. . According to the [place] [employer], Serum PSA should decrease and [...] PSA, Free 0.24 N/A ng/mL Alison ECLIA methodology. % Free PSA 30.0 The table below [...] any other population of men. Vitamin D, 56-Nvdohel-[id number] Reviewed date:12/28/2024 09:04:23 AM Interpretation: Performing Lab:[facility] [place], [address] [facility] [address], [place], Phone - [phone], Director - Esperanza Notes/Report: Vitamin D, 25-Hydroxy 47.2 30.0-100.0 ng/mL Vitamin D deficiency has been defined by the [place] [employer] and an Endocrine Society practice guideline as a level of serum 25-OH vitamin D less than 20 ng/mL (1,2). The Endocrine Society went on to further define vitamin D insufficiency as a level between 21 and 29 ng/mL (2). 1. IOM ([place] [employer]). 2010. Dietary reference intakes for calcium and D. [place]: The National Academies Press. 2. No MF, Yajaira [place], Robert PATEL, et al. Evaluation, treatment, and prevention of vitamin D deficiency: an Endocrine Society clinical practice guideline. JCEM. 2010; 96(7):1911-30. Reason For Referral Reason Evaluate & Treat [...] Duration) Notes Start Date End Date Status Vitamin D 50 MCG (1999) Capsule 1 capsule Orally Once a day Active Levothyroxine Sodium 88 MCG Tablet TAKE 1 TABLET BY MOUTH EVERY DAY IN THE MORNING ON EMPTY STOMACH FOR 90 DAYS; Duration: 90 Active Metoprolol Succinate ER 25 MG Tablet Extended Release 24 Hour TAKE 1 TABLET BY MOUTH EVERY DAY FOR 30 DAYS; Duration: 90 Not-Taking Omeprazole 20 MG Capsule Delayed Release TAKE 1 CAPSULE BY MOUTH EVERY DAY 1/2 TO 1 HOUR BEFORE MORNING MEAL; Duration: 90 days NEEDED Active hydroCHLOROthiazide 12.5 MG Tablet 1 tablet in the morning Orally Once a day; Duration: 30 days 08/16/2025 Active Sildenafil Citrate 100 MG Tablet 1 tablet as needed Orally Once a day; Duration: 7 days 10/31/2023 Active Atorvastatin Calcium 20 MG Tablet 1 tablet Orally Once a day; Duration: 90 days Active Irbesartan 300 MG Tablet TAKE 1 TABLET B Y MOUTH EVERY DAY FOR 90 DAYS; Duration: 90 Active amLODIPine Besylate 5 MG Tablet TAKE 1 TABLET BY MOUTH EVERY DAY Orally Once a day; Duration: 14 days Active Immunizations Vaccine Route Administration Date Status Comme nts influenza IM Intramuscular 06/28/2022 Administered influenza IM Intramuscular 06/23/2023 Administered influenza IM Intramuscular 06/27/2025 Administered Social History Tobacco Use: Social History Observation Description Date Details (start date - stop date) Never Smoker NA - NA Social History Tobacco Use: Social Info Question Answer Notes Tobacco Use/Smoking Are you a nonsmoker Section Notes: Tob: Never ETOH: Social Drug: Marijuana Pan Shaker/Shore Hand Dredge Or Barge Tob: Never ETOH: Social Drug: Marijuana Pan Shaker/Shore Hand Dredge Or Barge Tob: Never ETOH: Social Drug: Marijuana Pan Shaker/Shore Hand Dredge Or Barge Tob: Never ETOH: Social Drug: Marijuana Pan Shaker/Shore Hand Dredge Or Barge Tob: Never ETOH: Social Drug: Marijuana Pan Shaker/Shore Hand Dredge Or Barge Tob: Never ETOH: Social Drug: Marijuana Pan Shaker/Shore Hand Dredge Or Barge Tob: Never ETOH: Social Drug: Marijuana Pan Shaker/Shore Hand Dredge Or Barge Tob: Never ETOH: Social Drug: Marijuana Pan Shaker/Shore Hand Dredge Or Barge Problems Problem Type SNOMED Code ICD Code Onset Dates Problem Status W/U Status Risk Notes Problem Goiter (5818878) Iodine-deficien cy related (endemic) goiter, unspecified (E01.2) Active confirmed Problem Hyperlipidemia (21694992) Hyperlipidemia, unspecified (E78.5) Active confirmed Problem Essential hypertension (32841961) Essential (primary) hypertension (I10) Active confirmed Problem Endocrine/metabolic screening (405413300) Encounter for screening for other suspected endocrine disorder (Z13.29) Active confirmed Problem Acquired hypothyroidism (405278372) Acquired hypothyroidism (E03.9) Active confirmed Problem Anxiety (97077003) Anxiety (F41.9) Active confi rmed Problem Hyperlipoproteinemia (9377749) Acquired hyperlipoproteinemia (E78.5) Active confirmed Problem Adult health examination (536744782) Adult general medical exam (Z00.00) Active confirmed Problem Hypothyroidism (89699321) Hypothyroidism, unspecified type (E03.9) Active confirmed Problem External hemorrhoid (43400944) External hemorrhoid (K64.4) Active confirmed Problem Vitamin D deficiency (18709257) Vitamin D deficiency (E55.9) Active confirmed Problem Accelerated essentia l hypertension (99250834) Accelerated essential hypertension (I10) Active confirmed Problem Hypertension (99978501) Uncontrolled hypertension (I10) Active confirmed Problem Essential hypertension (50890348) Hypertension, unspecified type (I10) Active confirmed Problem Chronic fatigue syndrome (04057000) Chronic fatigue (R53.82) Active confirmed Problem Pure hypercholesterolemia (457390485) Elevated cholesterol (E78.00) Active confirmed Problem Vitamin B>12< deficiency anaemia (91900095) Anemia due to vitamin B12 deficiency, unspecified B12 deficiency type (D51.9) Active confirmed Problem Gastroesophageal reflux disease (079635523) GERD without esophagitis (K21.9) Active confirmed Problem Hemorrhoids (disorder) (14008779) Hemorrhoids, external (K64.4) Active confirmed Problem Bradycardia (53701689) Bradycardia (R00.1) Active confirmed Problem Multinodular goiter (636916660) Multinodular goiter (E04.2) Active confirmed Problem Screening for malignant neoplasm of prostate (093460466) Encounter for prostate cancer screening (Z12.5) Active confirmed Problem Lipid screening (213476623) Lipid screening (Z13.220) Active confirmed Problem Erectile dysfunction (disorder) (471827473) Erectile disorder (N52.9) Active confirmed Problem History of malignant melanoma of the skin (638469528072) History of melanoma (Z85.820) Active confirmed Problem Hyperlipidemia (08714358) Hyperlipidemia (E78.5) Active confirmed Problem Goiter (3834557) Goiter (E04.9) Active confirme d Vital Signs Heart Rate 67 /min 08/08/2025 Oximetry 97 % 08/08/2025 Blood pressure diastolic 76 mm Hg 08/08/2025 Height 71 in 08/08/2025 Blood pressure systolic 138 mm Hg 08/08/2025 Weight 198.0 lbs 08/08/2025 BMI 27.61 kg/m2 08/08/2025 Encounters Encounter Location Date Provider Diagnosis [facility] [address], [place] 08/02/2025 ROGERIOREGLA DELACRUZAN [facility] [address], [place] 11/02/2024 KUNAL SHAH Screening for heart disease Z13.6 ; Uncontrolled hypertension I10 and Goiter E04.[address] 11/09/2024 KUNAL ALYSSA Screening for heart disease Z13.6 ; Uncontrolled hypertension I10 and Goiter E04.9 [facility] [address] [place] [address] 12/27/2024 VON FREDDY Well adult exam Z00. 00 ; Essential (primary) hypertension I10 ; History of melanoma Z85.820 ; Goiter E04.9 ; Anxiety F41.9 ; Elevated cholesterol E78.00 and Multinodular goiter E04.2 [facility] [address] [place] [address] 01/26/2025 VON FREDDY External hemorrhoid K64.4 ; Essential (primary) hypertension I10 and Internal hemorrhoid K64.8 [facility] [address] [place] [address] 06/27/2025 VON FREDDY Essential (primary) hypertension I10 ; External hemorrhoid K64.4 ; Chronic fatigue R53.82 ; Erectile disorder N52.9 ; Bradycardia R00.1 and Encounter for examination of blood pressure without abnormal findings Z01.30 [facility] [address] [place] [address] 07/02/2025 VON FREDDY Essential (primary) hypertension I10 ; External hemorrhoid K64.4 ; Chronic fatigue R53.82 ; Erectile disorder N52.9 ; Bradycardia R00.1 and Encounter for examination of blood pressure without abnormal findings Z01.30 [facility] [address] [place], [place] 07/18/2025 Bekah Svrcek Acute sinusitis, unspecified J01.90 and Hypertension, unspecified type I10 [facility] [address] [place] [address] 08/08/2025 VON FREDDY Essential (primary) hypertension I10 ; External hemorrhoid K64.4 ; Chronic fatigue R53.82 ; Erectile disorder N52.9 and Encounter for examination of blood pressure without abnormal findings Z01.[address] [place] [address] 11/02/2024 TALAL COKER Essential (primary) hypertension I10 and Hypothyroidism, unspecified type E03.9 [facility] [address] [facility] [address] [place], [place] 12/27/2024 VON FREDDY [facility] [address] [place] [address] 08/02/2025 VON FREDDY [facility] [address] [place] [address] 08/08/2025 VON FREDDY [facility] [address] [address] 11/01/2024 TALAL COKER [facility] [address] [place] [address] 01/12/2025 VON FREDDY [facility] [address] [place] [address] 02/01/2025 VON FREDDY [facility] [address] [place] [address] 03/15/2025 VON FREDDY [facility] [address] [place] [address] 03/15/2025 VON FREDDY [facility] [address] [place] [address] 04/14/2025 VON FREDDY [facility] [address] [place] [address] 04/15/2025 VON FREDDY [facility] [address] [address] 05/18/2025 VON FREDDY [facility] [address] 06/21/2025 VON FREDDY Encounter for genera l adult medical examination without abnormal findings Z00.00 ; Hyperlipidemia, unspecified E78.5 and Vitamin D deficiency E55.9 [facility] [address] 07/18/2025 VON FREDDY [facility] [address] 08/12/2025 VON FREDDY [facility] [address] 08/16/2025 VON FREDDY Assessments Encounter Date Diagnosis (ICD [...] Dictation was accomplished with the use of MyCrowd voice recognition software, prone to medical misidentifications [...] Dictation was accomplished with the use of [employer] voice recognition software, prone to medical misidentifications [...] Dictation was accomplished with the use of [employer] voice recognition software, prone to medical misidentifications [...] Dictation was accomplished with the use of MyC[employer]d voice recognition software, prone to medical misidentifications [...] log exercise and discussed fitness Apps like [employer] which can help keep log off calories [...] Dictation was accomplished with the use of My[employer] voice recognition software, which is prone to [...] log exercise and discussed fitness Apps like [employer] which can help keep log off calories [...] Dictation was accomplished with the use of My[employer] voice recognition software, which is prone to [...] denies any pain upon rectal exam today. res habilitation assistant present in office today for rectal [...] Dictation was accomplished with the use of [employer] voice recognition software, which is prone to [...] denies any pain upon rectal exam today. res habilitation assistant present in office today for rectal [...] Dictation was accomplished with the use of My[employer] voice recognition software, which is prone to [...] Dictation was accomplished with the use of [employer] voice recognition software, which is prone to [...] Dictation was accomplished with the use of [employer] voice recognition software, which is prone to [...] Dictation was accomplished with the use of [employer] voice recognition software, prone to medical misidentifications and grammatical errors. This is unintentional and the practitioner does try to identify and correct these, but some could still be present. Please do not hesitate to contact practitioner for clarification. All questions answered to patients satisfaction. Patient verbalized understanding of diagnosis and treatments explained. To call sooner prior to next visit it any questions/concerns arise. 08/08/2025 Essential (primary) hypertension (ICD-10 - I10) Erick [...] also may be due to absent thyroid, recent labs arew WNL #Hypertension: Patient currently on amlodipine 10 mg tablets, irbesartan 300 mg tablets, officially discontinuing metoprolol 25 mg tablets....Tapering patient off of amlodipine 10 mg tablets, prescribing 5 mg x 2 weeks and then having patient represented to the office to see whether or not an additional agent needs to be added. Consider continuing to taper down and prescribe 2.5 x 2 weeks #Thyroidectomy: Recent thyroid labs WNL #GERD: Utilizing omeprazole 20 mg capsules #Hypothyroidism: [...] Dictation was accomplished with the use of My[employer]d voice recognition software, which is prone to medical misidentifications and grammatical errors. This are unintentional and the practitioner does try to identify and correct these, but some could still be present. Please do not hesitate to contact practitioner for clarification. 08/08/2025 External hemorrhoid (ICD-10 - K64.4) Erick is [...] also may be due to absent thyroid, recent labs arew WNL #Hypertension: Patient currently on amlodipine 10 mg tablets, irbesartan 300 mg tablets, officially discontinuing metoprolol 25 mg tablets....Tapering patient off of amlodipine 10 mg tablets, prescribing 5 mg x 2 weeks and then having patient represented to the office to see whether or not an additional agent needs to be added. Consider continuing to taper down and prescribe 2.5 x 2 weeks #Thyroidectomy: Recent thyroid labs WNL #GERD: Utilizing omeprazole 20 mg capsules #Hypothyroidism: [...] Dictation was accomplished with the use of MyC[employer] voice recognition software, which is prone to [...] Dictation was accomplished with the use of [employer] voice recognition software, which is prone to medical misidentifications and grammatical errors. This are unintentional and the practitioner does try to identify and correct these, but some could still be present. Please do not hesitate to contact practitioner for clarification. 07/02/2025 External hemorrhoid (ICD-10 - K64.4) Erick [...] Dictation was accomplished with the use of [employer] voice recognition software, which is prone to medical misidentifications and grammatical errors. This are unintentional and the practitioner does try to identify and correct these, but some could still be present. Please do not hesitate to contact practitioner for clarification. 08/08/2025 Chronic fatigue (ICD-10 - R53.82) Erick is [...] also may be due to absent thyroid, recent labs arew WNL #Hypertension: Patient currently on amlodipine 10 mg tablets, irbesartan 300 mg tablets, officially discontinuing metoprolol 25 mg tablets....Tapering patient off of amlodipine 10 mg tablets, prescribing 5 mg x 2 weeks and then having patient represented to the office to see whether or not an additional agent needs to be added. Consider continuing to taper down and prescribe 2.5 x 2 weeks #Thyroidectomy: Recent thyroid labs WNL #GERD: Utilizing omeprazole 20 mg capsules #Hypothyroidism: [...] the use of Dragon voice recognition software, which is prone to medical misidentifications and grammatical errors. This are unintentional and the practitioner does try to identify and correct these, but some could still be present. Please do not hesitate to contact practitioner for clarification. 07/18/2025 Hypertension, unspecified type (ICD-10 - I10) [...] to next visit it any questions/concerns arise. 06/27/2025 Chronic fatigue (ICD-10 - R53.82) Erick [...] Dictation was accomplished with the use of [employer] voice recognition software, which is prone to [...] log exercise and discussed fitness Apps like [employer] which can help keep log off calories [...] Dictation was accomplished with the use of [employer] voice recognition software, which is prone to [...] denies any pain upon rectal exam today. res habilitation assistant present in office today for rectal [...] Dictation was accomplished with the use of [employer] voice recognition software, which is prone to medical misidentifications and grammatical errors. This are unintentional and the practitioner does try to identify and correct these, but some could still be present. Please do not hesitate to contact practitioner for clarification. 06/21/2025 Hyperlipidemia, unspecified (ICD-10 - E78.5) 11/09/2024 Goiter (ICD-10 - E04.9) # HTN: [...] Dictation was accomplished with the use of [employer] voice recognition software, prone to medical misidentifications [...] Dictation was accomplished with the use of [employer] voice recognition software, prone to medical misidentifications [...] log exercise and discussed fitness Apps like [employer] which can help keep log off calories [...] Dictation was accomplished with the use of [employer] voice recognition software, which is prone to [...] Dictation was accomplished with the use of [employer] voice recognition software, which is prone to medical misidentifications and grammatical errors. This are unintentional and the practitioner does try to identify and correct these, but some could still be present. Please do not hesitate to contact practitioner for clarification. 08/08/2025 Erectile disorder (ICD-10 - N52.9) Erick is [...] also may be due to absent thyroid, recent labs arew WNL #Hypertension: Patient currently on amlodipine 10 mg tablets, irbesartan 300 mg tablets, officially discontinuing metoprolol 25 mg tablets....Tapering patient off of amlodipine 10 mg tablets, prescribing 5 mg x 2 weeks and then having patient represented to the office to see whether or not an additional agent needs to be added. Consider continuing to taper down and prescribe 2.5 x 2 weeks #Thyroidectomy: Recent thyroid labs WNL #GERD: Utilizing omeprazole 20 mg capsules #Hypothyroidism: [...] Dictation was accomplished with the use of [employer] voice recognition software, which is prone to [...] Dictation was accomplished with the use of [employer] voice recognition software, which is prone to [...] Dictation was accomplished with the use of [employer] voice recognition software, which is prone to medical misidentifications and grammatical errors. This are unintentional and the practitioner does try to identify and correct these, but some could still be present. Please do not hesitate to contact practitioner for clarification. 08/08/2025 Encounter for examination of blood pressure without [...] also may be due to absent thyroid, recent labs arew WNL #Hypertension: Patient currently on amlodipine 10 mg tablets, irbesartan 300 mg tablets, officially discontinuing metoprolol 25 mg tablets....Tapering patient off of amlodipine 10 mg tablets, prescribing 5 mg x 2 weeks and then having patient represented to the office to see whether or not an additional agent needs to be added. Consider continuing to taper down and prescribe 2.5 x 2 weeks #Thyroidectomy: Recent thyroid labs WNL #GERD: Utilizing omeprazole 20 mg capsules #Hypothyroidism: [...] Dictation was accomplished with the use of [employer] voice recognition software, which is prone to [...] Dictation was accomplished with the use of [employer] voice recognition software, which is prone to [...] log exercise and discussed fitness Apps like [employer] which can help keep log off calories [...] Dictation was accomplished with the use of [employer] voice recognition software, which is prone to [...] log exercise and discussed fitness Apps like [employer] which can help keep log off calories [...] Dictation was accomplished with the use of [employer] voice recognition software, which is prone to [...] Dictation was accomplished with the use of [employer] voice recognition software, which is prone to [...] Dictation was accomplished with the use of [employer] voice recognition software, which is prone to [...] Dictation was accomplished with the use of [employer] voice recognition software, which is prone to [...] log exercise and discussed fitness Apps like [employer] which can help keep log off calories [...] Dictation was accomplished with the use of [employer] voice recognition software, which is prone to medical misidentifications and grammatical errors. This are unintentional and the practitioner does try to identify and correct these, but some could still be present. Please do not hesitate to contact practitioner for clarification. Plan Of Treatment Pending Test Test Name Order Date LIPID PANEL, STANDARD 06/23/2023 LIPID PANEL, STANDARD 04/19/2024 LIPID PANEL, STANDARD 12/23/2022 LIPID PANEL, STANDARD 12/24/2023 COMPREHENSIVE METABOLIC PANEL 12/23/2022 COMPREHENSIVE METABOLIC PANEL 11/02/2024 COMPREHENSIVE METABOLIC PANEL 04/19/2024 COMPREHENSIVE METABOLIC PANEL 06/27/2025 COMPREHENSIVE METABOLIC PANEL 06/20/2022 COMPREHENSIVE METABOLIC PANEL 06/23/2023 CBC (INCLUDES DIFF/PLT) 06/23/2023 CBC (INCLUDES DIFF/PLT) 06/20/2022 CBC (INCLUDES DIFF/PLT) 06/27/2025 CBC (INCLUDES DIFF/PLT) 04/19/2024 CBC (INCLUDES DIFF/PLT) 11/02/2024 CBC (INCLUDES DIFF/PLT) 12/23/2022 URINALYSIS, COMPLETE 12/23/2022 URINALYSIS, COMPLETE 04/19/2024 URINALYSIS, COMPLETE 06/20/2022 URINALYSIS, COMPLETE 06/23/2023 VITAMIN B12 12/27/2024 PSA (FREE AND TOTAL) 12/27/2024 PSA, TOTAL 06/23/2023 T4, FREE 06/20/2022 T4, FREE 12/24/2023 TSH 12/24/2023 TSH 06/19/2023 TSH 06/20/2022 TSH 06/23/2023 TSH W/REFLEX TO FT4 04/19/2024 T3, FREE 12/24/2023 VITAMIN D,25-OH,TOTAL,IA 12/27/2024 TSH+T4F+T3Free 06/27/2025 TSH+T4F+T3Free 11/02/2024 Next Appt Details Provider Name:VON HAYES, 01:45:00 PM, [address], [place], [address], Provider Name:VON HAYES, 10:15:00 AM, [address], [place], [address], Insurance Providers Payer Name Payer Address Payer Phone Subscriber Number Group Number Insured Name Patient Relationship to Insured Coverage Start Date Coverage End Date [facility] [address] [place] [address] [phone] [id number] Cayden Olguin Self - patient is the insured Medical (General) History Medical History History ICD Code Essential (primary) hypertension I10 GERD without esophagitis K21.9 Goiter E04.9 History of melanoma Z85.820 Hyperlipidemia E78.5 Surgical History Surgery Date(Month/Year) septoplasty hernia repair parathyroid surgery Thyroid surgery 2021 hernia repair, [facility] Feb Hospitalization History Reason Date(Month/Year) Colonoscopy 08/2024
== END 2025-08-17 09:18 | disposition home or self-care (01) ==
LOC: HO.HMGAL 09:17
PROVIDERS: PCP Internal Medicine; Visit Provider Registered Nurse Emergency
DX: J30.89 Other allergic rhinitis (principal)
CPT/HCPCS: 95117; 95165